=== PATIENT | male | born 1940 | race Caucasian/White ===

== ENCOUNTER 2017-09-04 09:08 | Inpatient (IN) ==
--- NOTE | 2017-09-04 09:27 | Emergency Department Note ---
Disposition Clinical Impression: Warfarin-induced coagulopathy, Anemia, GI bleed Disposition: Admitted As Inpatient Condition: Fair Time of Disposition: 10:27 ([facility]ERR[facility]Johana Huerta [facility]) GI Bleed HPI - General Time Seen by Provider: 09/04/17 09:15 Source: patient Mode of arrival: ambulatory Limitations: no limitations Nursing Notes Reviewed: Yes Vital Signs Reviewed: Yes - History of Present Illness HPI Narrative: Earlier this month patient had a valvular insertion through the groin on both sides procedure went well but over the past week the patient's been getting lightheaded dizzy short of breath patient contacted his physician due to the fact that they had a postop evaluation at that time the surgeon then ordered a CBC and a Chem-7 which was done yesterday as well as a PT PTT and he received a phone call late last evening advising him that his hemoglobin was 6.1 and that he needed to come to the emergency room to be transfused patient presents here to the ER this morning requesting a transfusion of blood due to a low hemoglobin. Patient tells me now that he has been having lightheadedness little bit of dizziness shortness of breath no chest pain no chest pressure no palpitations but has also had black stools patient there was noted to be on iron supplementation to at this time he is not though been taking any Maalox or Mylanta or Pepto-Bismol patient denies though any additional complaints he denies though vomiting any blood coffee grounds or having GI upset. Patient though is somewhat agitated that he just thought he come to the ER and get blood and then go home but after having spoken to him he appears to be much more relaxed Pt Subjective Complaint: melena Onset (ago): week(s) (1) Consistency: constant Severity: mild Improves with: nothing Worsens with: nothing Context: anticoagulant use Associated symptoms: Reports: easy bruising, syncope/near-syncope, weakness. Denies: abdominal pain, nausea, vomiting, epistaxis, fever, chills, headaches, loss of appetite, malaise, rash, other bleeding source, shortness of breath Treatments Prior to Arrival: none - Related Data Home Medications Medication Instructions Recorded Confirmed Albuterol Neb [Proventil Neb] 2.5 mg IH Q4HR 01/22/15 09/04/17 Cetirizine HCl [Zyrtec] 10 mg PO DAILY 01/22/15 09/04/17 Cholecalciferol (Vitamin D3) 50,000 unit PO BID 01/22/15 09/04/17 [Vitamin D3] Fluticasone/Salmeterol [Advair 1 each IH BID 01/22/15 09/04/17 100-50 Diskus] Gemfibrozil [Lopid] 600 mg PO BIDWM 01/22/15 09/04/17 GlipiZIDE XL (24 HR) [Glucotrol XL] 2.5 mg PO BID 01/22/15 09/04/17 Ipratropium [place] 15 ml NS DAILY 01/22/15 09/04/17 Losartan [Cozaar] 25 mg PO DAILY 01/22/15 09/04/17 Multivitamin [Multi-Day Vitamins] 1 each PO DAILY 01/22/15 09/04/17 Omeprazole [PriLOSEC] 20 mg PO DAILY 01/22/15 09/04/17 Tamsulosin [Flomax] 0.4 mg PO DAILY 01/22/15 09/04/17 Vitamin B Complex [B Complex] 1 each PO DAILY 01/22/15 09/04/17 Warfarin [Coumadin] 2.5 mg PO 1800 01/22/15 09/04/17 metFORMIN [Glucophage] 1,000 mg PO BIDWM 01/22/15 09/04/17 Atorvastatin [Lipitor] 40 mg PO HS 09/04/17 09/04/17 Ferrous Sulfate [Iron] 325 mg PO DAILY 09/04/17 09/04/17 Hydrocodone/Acetaminophen 1 each PO Q6H 09/04/17 09/04/17 [Hydrocodon-Acetaminophen 5-325] Magnesium Oxide [Magnesium] 400 mg PO BID 09/04/17 09/04/17 Allergies Allergy/AdvReac Type Severity Reaction Status Date / Time No Known Allergies Allergy Verified 09/04/17 09:31 All systems ED: reviewed and negative except as stated. Review of Systems: As Per HPI Constitutional: Reports: weakness. Denies: fever, chills Eyes: Denies: eye pain, eye discharge ENT ED: Denies: ear pain, throat pain Cardiovascular: Denies: chest pain, palpitations, dyspnea on exertion Respiratory: Denies: cough, dyspnea, wheezes Gastrointestinal: Reports: melena. Denies: abdominal pain, nausea, vomiting Genitourinary: Denies: urgency, dysuria, frequency Musculoskeletal: Denies: back pain, neck pain Integumentary: Denies: rash, abrasion Neurological: Reports: weakness. Denies: headache, numbness, abnormal gait, vertigo Psychiatric: Denies: anxiety, depression Endocrine: Reports: fatigue. Denies: heat or cold intolerance Hematological/Lymphatic: Reports: easy bleeding, easy bruising Allergic/Immunologic: Denies: facial swelling, urticaria Past Medical History - Past Medical History Attestation: Yes The following information was validated with the patient. Source: patient, old records reviewed, nursing notes reviewed Medical history: Reports: asthma, COPD, diabetes, GERD, hyperlipidemia, hypertension, other Surgical history: Reports: knee replacement, other Psychiatric history: Reports: no psych history - Social History Smoking Status: Never smoker Alcohol use: Reports: heavy Drug use: Reports: none Physical Exam - General Limitations: no limitations General appearance: alert, in no apparent distress, anxious - Head Head exam: atraumatic, normocephalic, normal inspection - Eye Eye exam: Present: normal appearance, PERRL, EOMI - ENT ENT exam: normal exam, normal oropharynx, mucous membranes moist, TM's normal bilaterally, normal external ear exam - Neck Neck exam: Present: normal inspection, full ROM, trachea midline. Absent: meningismus, lymphadenopathy - Chest Chest inspection: Present: normal inspection, symmetric chest wall rise - Respiratory Respiratory exam: Present: normal lung sounds bilaterally - Cardiovascular Cardiovascular exam: Present: regular rate, normal rhythm, normal heart sounds - Abdominal Exam Abdominal exam: Present: soft, Non-Tender, normal bowel sounds, other ( umbilical hernia). Absent: mass, bruit, pulsatile mass - Rectal Exam Cloth Finisher present during exam: Yes (Jaquan RN) Rectal exam: Present: normal inspection, normal rectal tone, heme (+) stool, black stool - Male exam: Present: other (Ecchymosis bilateral hips near surgical incisions and then over the mons pubis and on to the penile shaft area purplish in color) - Extremities Exam Extremities exam: Present: normal inspection, full ROM, normal capillary refill. Absent: tenderness, pedal edema, joint swelling, calf tenderness - Expanded Upper Extremity Exam Shoulder exam: Present: normal inspection, full ROM Arm exam: Present: normal inspection, full ROM Elbow exam: Present: normal inspection, full ROM Forearm/Wrist exam: Present: normal inspection, full ROM Hand exam: Present: normal inspection, full ROM Vascular exam: Normal: capillary refill, radial pulse - Expanded Lower Extremity Exam Hip/Pelvis exam: Present: normal inspection, full ROM Upper leg exam: Present: normal inspection, full ROM Knee exam: Present: normal inspection, full ROM Lower leg exam: Present: normal inspection, full ROM Ankle exam: Present: normal inspection, full ROM Foot/toe exam: Present: normal inspection, full ROM Neurovascular/Tendon exam: Present: normal capillary refill, normal fine/light touch. Absent: motor deficit, sensory deficit, tendon deficit Gait: observed and normal - Back Exam Back exam: Present: normal inspection, full ROM. Absent: muscle spasm - Neurological Exam Neurological exam: Present: alert, oriented X3, CN II-XII intact, normal gait - Psychiatric Psychiatric exam: Present: normal affect, normal mood - Skin Skin exam: Present: warm, dry, intact, normal color Course Course Narrative: labs were obtained based on his hemoglobin was 6.1 yesterday he will need to have a transfusion which we will admit to observation to the duration of time to do the transfusion Vital Signs Temperature 98.0 F 09/04/17 09:22 Pulse Rate 80 09/04/17 09:22 Respiratory Rate 16 09/04/17 09:22 Blood Pressure 116/52 09/04/17 09:22 O2 Sat by Pulse Oximetry 99 09/04/17 09:22 Temperature 98.0 F 09/04/17 09:22 Pulse Rate 80 09/04/17 09:22 Respiratory Rate 16 09/04/17 09:22 Blood Pressure 116/52 09/04/17 09:22 O2 Sat by Pulse Oximetry 99 09/04/17 09:22 Oxygen Delivery Oxygen Delivery Room Air GI Bleed - Differential Diagnosis Likely: Upper gastrointestinal hemorrhage, Lower gastrointestinal hemorrhage, melena - Medical Records Medical records reviewed: Yes I reviewed the patient's medical records. - Lab Data Lab results reviewed: Yes I reviewed the patient's lab results. Result diagrams: 09/04/17 09:30 09/04/17 09:30 Lab Results 09/04/17 09/04/17 09/04/17 Range/Units 09:30 09:30 09:30 WBC 4.6 (4.3-11.1) K/mcL RBC 2.06 L (4.19-5.50) M/mcL Hgb 6.6 L (12.9-16.9) g/dL Hct 20.1 L (37.5-50.1) % MCV 97.6 (83.0-100.0) fL MCH 32.0 (28.0-33.3) pg MCHC 32.8 (31.6-35.5) g/dL RDW 14.9 H (11.5-14.5) % Plt Count 218 (140-400) K/mcL MPV 8.8 L (9.4-12.4) fL Immature Gran % 0.2 (0-4) % Seg Neutrophils % 45.7 % Lymphocytes % 39.3 % Monocytes % 10.7 % Eosinophils % 3.9 % Basophils % 0.2 % Neutrophils # 2.1 (1.6-8.9) K/mcL Lymphocytes # 1.8 (0.6-4.6) K/mcL Monocytes # 0.5 (0.0-1.3) K/mcL Eosinophils # 0.2 (0.0-0.6) K/mcL Basophils # 0.0 (0.0-0.2) K/mcL PT 15.5 H D (9.4-12.1) Seconds INR 1.4 D APTT 36.4 H (26.0-36.0) Seconds Sodium 130 L (136-145) mEq/L Potassium 4.6 (3.5-5.1) mEq/L Chloride 97 L (98-107) mEq/L Carbon Dioxide 26 (23-29) mEq/L BUN 29 H (8-23) mg/dL Creatinine 1.02 (0.70-1.30) mg/dL Est GFR ( Amer) > 60 (> 60) Est GFR (Non-Af Amer) > 60 (> 60) BUN/Creatinine Ratio 28 H (6-26) Glucose 163 H (70-105) mg/dL Calculated Osmolality 279 L (280-300) Calcium 9.3 (8.6-10.3) mg/dL Total Bilirubin 0.8 (0.3-1.0) mg/dL AST 10 L (13-39) Units/L ALT 6 L (7-52) Units/L Alkaline Phosphatase 41 (34-104) Units/L Serum Total Protein 6.1 L (6.4-8.9) g/dL Albumin 4.0 (3.5-5.7) g/dL Globulin 2.1 L (2.4-3.5) g/dL Albumin/Globulin Ratio 1.9 (1.1-2.2) Stool Occult Blood (Negative) Digoxin < 0.3 L (0.8-2.0) ng/mL 09/04/17 Range/Units 09:30 WBC (4.3-11.1) K/mcL RBC (4.19-5.50) M/mcL Hgb (12.9-16.9) g/dL Hct (37.5-50.1) % MCV (83.0-100.0) fL MCH (28.0-33.3) pg MCHC (31.6-35.5) g/dL RDW (11.5-14.5) % Plt Count (140-400) K/mcL MPV (9.4-12.4) fL Immature Gran % (0-4) % Seg Neutrophils % % Lymphocytes % % Monocytes % % Eosinophils % % Basophils % % Neutrophils # (1.6-8.9) K/mcL Lymphocytes # (0.6-4.6) K/mcL Monocytes # (0.0-1.3) K/mcL Eosinophils # (0.0-0.6) K/mcL Basophils # (0.0-0.2) K/mcL PT (9.4-12.1) Seconds INR APTT (26.0-36.0) Seconds Sodium (136-145) mEq/L Potassium (3.5-5.1) mEq/L Chloride (98-107) mEq/L Carbon Dioxide (23-29) mEq/L BUN (8-23) mg/dL Creatinine (0.70-1.30) mg/dL Est GFR ( Amer) (> 60) Est GFR (Non-Af Amer) (> 60) BUN/Creatinine Ratio (6-26) Glucose (70-105) mg/dL Calculated Osmolality (280-300) Calcium (8.6-10.3) mg/dL Total Bilirubin (0.3-1.0) mg/dL AST (13-39) Units/L ALT (7-52) Units/L Alkaline Phosphatase (34-104) Units/L Serum Total Protein (6.4-8.9) g/dL Albumin (3.5-5.7) g/dL Globulin (2.4-3.5) g/dL Albumin/Globulin Ratio (1.1-2.2) Stool Occult Blood Positive A (Negative) Digoxin (0.8-2.0) ng/mL Critical Care Time Critical Care Time: Yes Total Critical Care Time: 35 Attestation: Critical care performed: 35 minutes as the result of the low hemoglobin with the potential risk of needing transfusion immediate versus urgent due to the fact that the blood losses been slow over the past week we can transfuse I spoke with Dr. Rutledge concerns was where the etiology was from I did have a CT scan abdomen pelvis to make sure it is not evidence of a retroperitoneal bleed patient will be transferred to [facility] for further management Time is exclusive of separately billable procedures. Time includes: direct patient care, patient reassessment, coordination of patient care, interpretation of data (laboratory data, radiology data, and respiratory data), review of patient's medical records, medical consultation and documentation of patient care. Procedures included in critical care time: Procedures excluded from critical care time:
[2017-09-04 09:51] LABS: Basophils % 0.2 %; Eosinophils # 0.2 K/mcL (0.0-0.6); Eosinophils % 3.9 %; Hematocrit 20.1 % (37.5-50.1); Immature Granulocytes % 0.2 % (0-4); Lymphocytes # 1.8 K/mcL (0.6-4.6); Lymphocytes % 39.3 %; Mean Corpuscular HGB Conc 32.8 g/dL (31.6-35.5); Mean Corpuscular Volume 97.6 fL (83.0-100.0); Mean Platelet Volume 8.8 fL (9.4-12.4); Monocytes # 0.5 K/mcL (0.0-1.3); Monocytes % 10.7 %; Neutrophils # 2.1 K/mcL (1.6-8.9); Platelet Count 218 K/mcL (140-400); Red Blood Count 2.06 M/mcL (4.19-5.50); Red Cell Distribution Width 14.9 % (11.5-14.5); Segmented Neutrophils % 45.7 %
[2017-09-04 10:01] LABS: INR 1.4; Prothrombin Time 15.5 Seconds (9.4-12.1)
[2017-09-04 10:03] LABS: Hemoglobin 6.6 g/dL (12.9-16.9)
[2017-09-04 10:04] LABS: Activated Partial Thrombo Time 36.4 Seconds (26.0-36.0)
[2017-09-04 10:15] LABS: Alanine Aminotransferase 6 Units/L (7-52); Albumin/Globulin Ratio 1.9 (1.1-2.2); Alkaline Phosphatase 41 Units/L (34-104); Aspartate Amino Transferase 10 Units/L (13-39); BUN/Creatinine Ratio 28 (6-26); Bilirubin,Total 0.8 mg/dL (0.3-1.0); Blood Urea Nitrogen 29 mg/dL (8-23); Calcium 9.3 mg/dL (8.6-10.3); Carbon Dioxide 26 mEq/L (23-29); Chloride 97 mEq/L (98-107); Digoxin < 0.3 ng/mL (0.8-2.0); Globulin 2.1 g/dL (2.4-3.5); Glucose 163 mg/dL (70-105); Osmolality,Calculated 279 (280-300); Potassium 4.6 mEq/L (3.5-5.1); Sodium 130 mEq/L (136-145); Total Protein 6.1 g/dL (6.4-8.9); eGFR For African Americans > 60 (> 60); eGFR For Non-African Americans > 60 (> 60)
[2017-09-04] MEDS ORDERED: Naloxone 0.4 MG/ML INJ IVP PRN (11:42)
[2017-09-04] MEDS ORDERED: Albuterol 2.5 MG/3 ML NEBULIZER IH SCH (12:00)
[2017-09-04] MEDS ORDERED: 0.9 % Sodium Chloride 250 ML ONE ×3 (12:01→18:39)
--- NOTE | 2017-09-04 13:49 | Internal Med History&Physical ---
Date of Encounter: 09/04/17 Time of Encounter: 13:44 Assessment and Plan (1) GI bleed Current visit: Yes Status: Acute Patient presents with complaints of dizziness and malaise over the past several days. Patient had postoperative lab work done in the surgeon's office which showed a hemoglobin of 6.6. Vital signs remained symptomatic. Patient endorses black tarry stools, which she states did not present for over a month. Patient has recent history of anemia prior to his valvular surgery, during which she required transfusion at that time. Patient admitted for transfusion of 3 units of packed red blood cells. We will recheck labs afterwards Qualifiers: GI bleed type/associated pathology: unspecified gastrointestinal hemorrhage type Qualified Code(s): K92.2 - Gastrointestinal hemorrhage, unspecified (2) Valvular disease Current visit: Yes Status: Acute Patient had a intravascular replacement several weeks prior to this admission. Patient denies any chest discomforts or palpitations. Patient currently remains on Coumadin but his admission INR was 1.4. Obtain with supportive care and current home medications (3) HTN (hypertension) Current visit: Yes Status: Chronic Vital signs are stable. We will continue with current medications Qualifiers: Hypertension type: essential hypertension Qualified Code(s): I10 - Essential (primary) hypertension (4) COPD (chronic obstructive pulmonary disease) Current visit: Yes Status: Chronic No acute issues. Lungs are clear throughout. Patient states that he uses nebulized treatments and inhalers at home. Denies any current dyspnea or productive cough. We will continue with current home medications Qualifiers: COPD type: unspecified COPD Qualified Code(s): J44.9 - Chronic obstructive pulmonary disease, unspecified (5) BPH (benign prostatic hyperplasia) Current visit: Yes Status: Acute No acute issues. Patient states that he had a remote procedure performed by his urologist years ago and has not had any issues since then has been stable. Will continue current meds. Qualifiers: Lower urinary tract symptom presence: symptoms absent Qualified Code(s): N40.0 - Benign prostatic hyperplasia without lower urinary tract symptoms Internal Medicine - H&P: HPI Admitted From: Home Plans for Post Hospital Care: Home History of present illness: Mr. Mac is a 77 year old male who presented into the emergency department as a referral from patient's current [facility] surgeon. Patient was doing a follow-up with his current cardiovascular surgeon and after review of labs he was found to have a hemoglobin of 6.6 and was directed to come to the ED. Patient endorses having dark tarry stools which he states that he has had for over a month. He states that he has been experiencing weakness and dizziness over the past several days. Patient states that he had a intravascular valve replacement in [place] at [facility] a few weeks prior to this admission. Patient states that prior to the hospital admission for his valve replacement that he experienced anemia in which his hemoglobin was 6.1 approximately and at that time required a blood transfusion. Patient states that he has not experienced any osvaldo blood in his stool. He states that he was seen by a soda maker during his last admission and had a upper and lower GI performed by using a camera pill. Patient denies any endoscopy or colonoscopy during that admission. Patient denies any nausea or vomiting. Past Med Surg Social Fam HX - Past Medical History Medical history: asthma, COPD, diabetes, GERD, hyperlipidemia, hypertension, valvular heart disease, other Psychiatric history: no psych history - Past Surgical History Surgical History: knee replacement, other - Social History Smoking Status: Never smoker Smokeless Tobacco Status: No Alcohol use: heavy Drug use: none - Family History Sister Living Status: Hx Family Cancer: Yes (breast) Brother Living Status: Hx Family Cancer: (colon) Internal Medicine - H&P: Meds Fluticasone/Salmeterol [Advair 100-50 Diskus] 1 each IH BID 01/22/15 [History] Gemfibrozil [Lopid] 600 mg PO BIDWM 01/22/15 [History] Multivitamin [Multi-Day Vitamins] 1 each PO DAILY 01/22/15 [History] Omeprazole [PriLOSEC] 20 mg PO DAILY 01/22/15 [History] Tamsulosin [Flomax] 0.8 mg PO HS 01/22/15 [History] Vitamin B Complex [B Complex] 1 each PO DAILY 01/22/15 [History] Warfarin [Coumadin] 2.5 mg PO 1800 01/22/15 [History] metFORMIN [Glucophage] 1,000 mg PO BIDWM 01/22/15 [History] Atorvastatin [Lipitor] 40 mg PO HS 09/04/17 [History] Cholecalciferol (Vitamin D3) [Dialyvite Vitamin D] 10,000 unit PO DAILY [History] Ferrous Sulfate [Iron] 325 mg PO DAILY 09/04/17 [History] Hydrocodone/Acetaminophen [Hydrocodon-Acetaminophen 5-325] 1 each PO Q6H [History] Ipratropium/Albuterol Neb [Duoneb] 3 ml IH Q6HR PRN 09/04/17 [History] Magnesium Oxide [Magnesium] 400 mg PO BID 09/04/17 [History] predniSONE [Prednisone] 5 mg PO DAILY 09/04/17 [History] 3 Allergy/AdvReac Type Severity Reaction Status Date / Time No Known Allergies Allergy Verified 09/04/17 09:31 All Systems PM: A 10-system review of systems was performed and is negative for pertinent findings except as documented above in the HPI. - Constitutional Constitutional: as per HPI, no chills, no fever(s), no night sweats - EENT Eyes: no change in vision, no discharge, no pain, no photophobia Ears: no ear discharge, no ear pain, no tinnitus Nose, mouth and throat: no dysphagia, no nasal discharge, no neck pain, no sore throat - Cardiovascular Cardiovascular ROS IM: as per HPI, no chest pain, no diaphoresis, no dyspnea, no lightheadedness, no palpitations, no syncope - Respiratory Respiratory: no cough, no dyspnea, no wheezing, no excessive phlegm production - Gastrointestinal Gastrointestinal: as per HPI, no abdominal pain, no diarrhea, no hematemesis, no hematochezia, no melena, no nausea, no vomiting - Musculoskeletal Musculoskeletal ROS IM: no numbness, no tingling - Integumentary Integumentary IM: no rash, no unusual bruising - Neurological Neurological ROS: no confusion, no convulsions, no focal weakness, no numbness, no tingling, no tremor(s) - Hematologic/Lymphatic Hematologic/Lymphatic: no easy bruising - Constitutional Vitals: Temp Pulse Resp BP Pulse Ox 97.7 F 81 16 108/55 99 09/04/17 12:47 09/04/17 12:47 09/04/17 12:47 09/04/17 12:47 09/04/17 12:47 General appearance: Present: A&O X 3, pleasant - Head Head exam: Present: atraumatic, normocephalic - Eye Eye exam: Present: PERRL, conjuntiva pink, sclera anicteric Pupils: Present: PERRL - Neck Neck exam general surgery: Present: supple, trachea midline. Absent: lymphadenopathy - Respiratory Respiratory exam: Present: CTAB. Absent: accessory muscle use, rales, rhonchi, wheezes - Cardiovascular Cardiovascular exam: Present: irregular rhythm, RRR, +S1, +S2. Absent: diastolic murmur, gallop, rubs, systolic murmur - GI/Abdominal GI/Abdominal exam: Present: hyperactive bowel sounds, soft, no peritoneal signs. Absent: distended, tenderness - Extremities Exam Extremities exam: Present: warm, radial pulses palpable and symmetrical. Absent : calf tenderness, cyanotic, pedal edema - Neurological Exam Neurological exam: Present: CN II-XII intact, oriented X3, no focal deficits. Absent: pronater drift, facial droop, speech deficit - Skin Skin exam: Present: dry, intact Internal Med - H&P Results - Labs CBC & Chem 7: 09/04/17 09:30 09/04/17 09:30
[2017-09-04] MEDS: Furosemide 20 MG/2 ML VIAL IVP SCH ×3 (15:30→23:15)
[2017-09-04] MEDS: Ipratropium/Albuterol Neb 3 ML IH PRN (15:52)
[2017-09-04] MEDS: *HR* HYDROcodone/Acet 5/325 mg TABLET PO SCH ×3 (15:52→23:14)
[2017-09-04] MEDS ORDERED: *HR* Digoxin 0.5 MG/2 ML AMPUL IVP ONE (17:27)
[2017-09-04] MEDS: *HR* Metformin 500 MG TABLET PO SCH (17:49)
[2017-09-04] MEDS: Aspirin Enteric Coated 325 MG Tablet PO SCH (17:49)
[2017-09-04] MEDS: Pantoprazole 40 MG VIAL IVP SCH (17:50)
[2017-09-04] MEDS ORDERED: *HR* Warfarin 2.5 MG TABLET PO SCH (18:00)
[2017-09-04] MEDS: Cholecalciferol (D-3) 1,000 UNIT TABLET PO SCH (18:06)
[2017-09-04] MEDS ORDERED: *HR* GlipiZIDE XL (24 HR) 2.5 MG TABLET PO SCH (21:00)
[2017-09-04] MEDS: Magnesium Oxide 400 MG TABLET PO SCH (21:49)
[2017-09-04] MEDS: Budesonide/Formoterol 80/4.5 MDI IH SCH (22:08)
[2017-09-05 05:39] LABS: Hematocrit 24.9 % (37.5-50.1); Hemoglobin 8.3 g/dL (12.9-16.9); Mean Corpuscular HGB Conc 33.3 g/dL (31.6-35.5); Mean Corpuscular Hemoglobin 31.1 pg (28.0-33.3); Mean Corpuscular Volume 93.3 fL (83.0-100.0); Mean Platelet Volume 8.5 fL (9.4-12.4); Platelet Count 162 K/mcL (140-400); Red Blood Count 2.67 M/mcL (4.19-5.50); Red Cell Distribution Width 16.5 % (11.5-14.5)
[2017-09-05 05:57] LABS: Alanine Aminotransferase 6 Units/L (7-52); Albumin 3.7 g/dL (3.5-5.7); Albumin/Globulin Ratio 1.9 (1.1-2.2); Alkaline Phosphatase 42 Units/L (34-104); Aspartate Amino Transferase 10 Units/L (13-39); BUN/Creatinine Ratio 26 (6-26); Bilirubin,Total 1.1 mg/dL (0.3-1.0); Blood Urea Nitrogen 29 mg/dL (8-23); Calcium 8.9 mg/dL (8.6-10.3); Carbon Dioxide 28 mEq/L (23-29); Chloride 97 mEq/L (98-107); Glucose 106 mg/dL (70-105); Osmolality,Calculated 280 (280-300); Potassium 3.9 mEq/L (3.5-5.1); Sodium 132 mEq/L (136-145); Total Protein 5.7 g/dL (6.4-8.9); eGFR For African Americans > 60 (> 60); eGFR For Non-African Americans > 60 (> 60)
[2017-09-05] MEDS: *HR* HYDROcodone/Acet 5/325 mg TABLET PO SCH ×3 (06:11→18:15)
[2017-09-05] MEDS: Pantoprazole 40 MG VIAL IVP SCH ×2 (06:12→18:14)
[2017-09-05] MEDS: Ipratropium/Albuterol Neb 3 ML IH PRN (06:19)
[2017-09-05] MEDS: *HR* Digoxin 0.25 MG TABLET PO SCH (09:25)
[2017-09-05] MEDS: Magnesium Oxide 400 MG TABLET PO SCH ×2 (09:25→20:24)
[2017-09-05] MEDS: Multivit/Ca/Min/Fe/FA 1 TAB TABLET PO SCH (09:25)
[2017-09-05] MEDS: IPRATROPIUM BROMIDE NS SCH (09:26)
[2017-09-05] MEDS: Loratadine 10 MG TABLET PO SCH (09:26)
[2017-09-05] MEDS: *HR* Metformin 500 MG TABLET PO SCH ×2 (09:26→18:14)
[2017-09-05] MEDS: Cholecalciferol (D-3) 1,000 UNIT TABLET PO SCH (09:26)
[2017-09-05] MEDS: Vitamin B Complex/Vit C/Vit E 1 EACH TABLET PO SCH (09:26)
[2017-09-05] MEDS: Aspirin Enteric Coated 325 MG Tablet PO SCH (09:26)
[2017-09-05] MEDS: Budesonide/Formoterol 80/4.5 MDI IH SCH ×2 (09:27→20:25)
--- NOTE | 2017-09-05 10:04 | Internal Med Progress Note ---
Date of Encounter: 09/05/17 Time of Encounter: 10:02 - Assessment and plan (1) Warfarin-induced coagulopathy Current Visit: Yes Status: Acute Assessment and plan: No source could be found It was noted to have high INR in surgeons office . Hemoglobin was low . he was admitted for blood transfusion and received 3 units. Followup H/H today According to patient he had colonoscopy and [facility] . Per Daughter there were hemorrhoids but no active bleeding could be found. At the present time he is s table . his warfarin has been on hold (2) Valvular disease Current Visit: Yes Status: Acute Assessment and plan: s/p Valve replacement . if mechanical valve would need anticoagulation however on face of bleed , and warfarin at hold its does become risky due to incidents or stroke . Clinically he is stable and can be discharged if his h/h is stable (3) HTN (hypertension) Current Visit: Yes Status: Chronic Assessment and plan: stable Qualifiers: Hypertension type: essential hypertension Qualified Code(s): I10 - Essential (primary) hypertension - Subjective Interval history: seen as cross coverage . Male with h of recent valve replacement, developed black tarry stools and was noted to ahve low H/H he was admitted for blood transfusion and received 3 units PRBC . He was also feeling of dizziness. At the present time he is in no acute distress alert and oriented and cooperative - Constitutional Vitals: Temp Pulse Resp BP Pulse Ox 98.7 F 73 16 165/73 100 09/05/17 07:01 09/05/17 07:01 09/05/17 04:00 09/05/17 07:01 09/05/17 07:01 General appearance: Present: A&O X 3, pleasant - Head Head exam: Present: atraumatic - Eye Eye exam: Present: EOMI, PERRL - Neck Neck exam general surgery: Present: supple. Absent: tenderness, nuchal rigidity - Respiratory Respiratory exam: Present: CTAB. Absent: respiratory distress, rhonchi, stridor , wheezes, tachypnea - Cardiovascular Cardiovascular exam: Present: clicks, RRR, +S1, +S2. Absent: irregular rhythm, JVD, systolic murmur - GI/Abdominal GI/Abdominal exam: Present: normal bowel sounds, soft. Absent: firm, guarding, pulsatile mass, rebound, rigid - Extremities Exam Extremities exam: Absent: pedal edema, tenderness - Neurological Exam Neurological exam: Present: CN II-XII intact, normal gait, oriented X3, no focal deficits, strengths equal and symetr throughout. Absent: pronater drift, facial droop, speech deficit Internal Medicine: Result - Labs CBC & Chem 7: 09/05/17 05:35 09/05/17 05:35 Labs: Short CBC 09/05/17 Range/Units 05:35 WBC 5.1 (4.3-11.1) K/mcL Hgb 8.3 L D (12.9-16.9) g/dL Hct 24.9 L (37.5-50.1) % Plt Count 162 (140-400) K/mcL BMP 09/05/17 05:35 Sodium 132 L Potassium 3.9 Chloride 97 L Carbon Dioxide 28 BUN 29 H Creatinine 1.11 Glucose 106 H Calcium 8.9 Liver Function 09/05/17 Range/Units 05:35 Total Bilirubin 1.1 H (0.3-1.0) mg/dL AST 10 L (13-39) Units/L ALT 6 L (7-52) Units/L Alkaline Phosphatase 42 (34-104) Units/L Albumin 3.7 (3.5-5.7) g/dL - ABG Interpretation ABG results: PT/INR, D-dimer PT 15.5 Seconds (9.4-12.1) H D 09/04/17 09:30 - VTE Documentation of Mechanical Device: Graduated compression elastic hosiery Consult Discharge Plan - Plan
[2017-09-05 15:36] LABS: Hematocrit 22.9 % (37.5-50.1); Hemoglobin 7.7 g/dL (12.9-16.9)
[2017-09-05 18:52] LABS: % Iron Saturation 15 % (20-55); Iron 77 mcg/dL (65-175); Transferrin 363 mg/dL (203-362)
[2017-09-05 19:17] LABS: Vitamin B12 307 pg/mL (250-1100)
[2017-09-05 19:21] LABS: Folate > 22.3 ng/mL (3.0-16.0)
[2017-09-06] MEDS: *HR* HYDROcodone/Acet 5/325 mg TABLET PO SCH ×2 (00:03→05:55)
[2017-09-06] MEDS: Ipratropium/Albuterol Neb 3 ML IH PRN (04:20)
[2017-09-06 04:52] LABS: Hematocrit 26.1 % (37.5-50.1); Hemoglobin 8.6 g/dL (12.9-16.9)
[2017-09-06] MEDS: Pantoprazole 40 MG VIAL IVP SCH (05:56)
[2017-09-06 07:55] VITALS: BP 173/77
[2017-09-06] MEDS: Multivit/Ca/Min/Fe/FA 1 TAB TABLET PO SCH (08:45)
[2017-09-06] MEDS: Loratadine 10 MG TABLET PO SCH (08:45)
[2017-09-06] MEDS: Aspirin Enteric Coated 325 MG Tablet PO SCH (08:45)
[2017-09-06] MEDS: Magnesium Oxide 400 MG TABLET PO SCH (08:45)
[2017-09-06] MEDS: Cholecalciferol (D-3) 1,000 UNIT TABLET PO SCH (08:45)
[2017-09-06] MEDS: *HR* Digoxin 0.25 MG TABLET PO SCH (08:45)
[2017-09-06] MEDS: Vitamin B Complex/Vit C/Vit E 1 EACH TABLET PO SCH (08:45)
[2017-09-06] MEDS: *HR* Metformin 500 MG TABLET PO SCH (08:45)
[2017-09-06] MEDS: IPRATROPIUM BROMIDE NS SCH (08:50)
[2017-09-06] MEDS: Budesonide/Formoterol 80/4.5 MDI IH SCH (08:50)
--- NOTE | 2017-09-06 08:50 | Discharge Summary ---
- NOTES TO OUTPATIENT PROVIDER Notes to Outpatient Provider: followup with PC to assess need for warfarin Orders not resulted at time of discharge: Pending orders 09/05/17 19:28 Stool guiac [Occult Blood,Stool] [BF] Routine Date of Encounter: 09/06/17 Time of Encounter: 08:45 - Discharge Diagnosis (1) Warfarin-induced coagulopathy Priority: Primary Status: Acute Comments: pt was admitted with low H/H and a positive guaice . He received 3 units or PRBC which he tolerated well . He denies any conintues tarry stools infact he had been constipated during his stay and dint had any bowel movement . No abdominal pain or any signs of bleed at the resent time . He os off Warfarin which he takes for hx of A fib has a CHANCE score of 3 . This needs to be reassessed in the presence of bleed and anemia (2) Valvular disease Priority: Secondary Status: Chronic Comments: s/p TAVR stable (3) HTN (hypertension) Priority: Secondary Status: Chronic Comments: slightly high systolic today needs further adjustments based on his age this can be accomplished as out pt . Qualifiers: Hypertension type: essential hypertension Qualified Code(s): I10 - Essential (primary) hypertension Hospital course: Mr. Mac is a 77 year old male - Time Spent with Patient Total time spent providing and/or coordinating discharge services: Greater than 30 minutes Specific discharge activities: as tolerated - Discharge Medications Home Medications: Fluticasone/Salmeterol [Advair 100-50 Diskus] 1 each IH BID 01/22/15 [History] Gemfibrozil [Lopid] 600 mg PO BIDWM 01/22/15 [History] Multivitamin [Multi-Day Vitamins] 1 each PO DAILY 01/22/15 [History] Omeprazole [PriLOSEC] 20 mg PO DAILY 01/22/15 [History] Tamsulosin [Flomax] 0.8 mg PO HS 01/22/15 [History] Vitamin B Complex [B Complex] 1 each PO DAILY 01/22/15 [History] Warfarin [Coumadin] 2.5 mg PO 1800 01/22/15 [History] metFORMIN [Glucophage] 1,000 mg PO BIDWM 01/22/15 [History] Atorvastatin [Lipitor] 40 mg PO HS 09/04/17 [History] Cholecalciferol (Vitamin D3) [Dialyvite Vitamin D] 10,000 unit PO DAILY [History] Ferrous Sulfate [Iron] 325 mg PO DAILY 09/04/17 [History] Hydrocodone/Acetaminophen [Hydrocodon-Acetaminophen 5-325] 1 each PO Q6H [History] Ipratropium/Albuterol Neb [Duoneb] 3 ml IH Q6HR PRN 09/04/17 [History] Magnesium Oxide [Magnesium] 400 mg PO BID 09/04/17 [History] predniSONE [Prednisone] 5 mg PO DAILY 09/04/17 [History] Allergies/Adverse Reactions: 3 Allergy/AdvReac Type Severity Reaction Status Date / Time No Known Allergies Allergy Verified 09/04/17 09:31 Date of admission: 09/05/17 11:07 Primary care physician: Del Reyes CNP Discharging clinician: Radha Estrella Anticipated date of discharge: 09/06/17 - Constitutional Vitals: Temp Pulse Resp BP Pulse Ox 97.9 F 82 16 173/77 99 09/06/17 07:54 09/06/17 07:54 09/06/17 07:54 09/06/17 07:54 09/06/17 07:54 General appearance: Present: A&O X 3, pleasant, answers questions appropriately - Head Head exam: Present: atraumatic - Eye Eye exam: Present: EOMI, PERRL - Neck Neck exam general surgery: Present: supple. Absent: nuchal rigidity - Respiratory Respiratory exam: Present: CTAB. Absent: chest wall tenderness, decreased breath sounds, respiratory distress, rhonchi, stridor, wheezes - Cardiovascular Cardiovascular exam: Present: clicks, RRR, +S1, +S2, +S3. Absent: JVD, systolic murmur - GI/Abdominal GI/Abdominal exam: Present: normal bowel sounds, soft. Absent: distended, guarding, rebound, rigid - Extremities Exam Extremities exam: Absent: pedal edema, tenderness - Neurological Exam Neurological exam: Present: alert, CN II-XII intact, oriented X3, no focal deficits, strengths equal and symetr throughout. Absent: facial droop, speech deficit - Patient Status Disposition: Home, Self-Care Condition: Good Functional capacity at discharge: uses cane/walker Overall status at discharge: patient is back to baseline - Discharge Instructions Follow Up With: Del Reyes PAPER TWISTER TENDER [Primary Care Provider] - Forms: ED Satisfaction Letter Additional Instructions: followup with PC within a week time . needs followup for h/h and HTN - Diet and Activity Activity: increase activity as tolerated - VTE Reasons for not Prescribing Prophylaxis: Medical contraindication Documentation of Mechanical Device: Graduated compression elastic hosiery
--- NOTE | 2017-09-08 15:56 | Electrocardiograph Report ---
[address] [place], [place] [address] Test Date: 2017-09-04 Pat Name: Shantal Mac Department: 2001 Room: 118 Gender: M Stogy Maker: Steven : 1940 Requested By: Efe Rutledge Order Number: [id number] Reading MD: Dougie Trujillo Measurements Intervals [place] Rate: 107 P: [place]: 0 QRS: 63 QRSD: 137 T: 65 QT: 374 QTc: 436 Interpretive Statements ATRIAL FIBRILLATION WITH RAPID VENTRICULAR RESPONSE INTRAVENTRICULAR CONDUCTION DELAY ANTEROSEPTAL MYOCARDIAL INFARCTION, AGE UNDETERMINED Electronically Signed On 09-08-2017 15:55:11 EDT by Dougie Trujillo
== END 2017-09-06 11:31 | disposition home or self-care (01) | DRG 379 ==
LOC: INPGRE 09:08 → EMEROOGRE 09:08 → INPGRE 10:46
PROVIDERS: ADMIT Internal Medicine; ATTEND Internal Medicine

== ENCOUNTER 2019-08-19 13:22 | Observation (INO) ==
[2019-08-19] MEDS ORDERED: 0.9 % Sodium Chloride 1,000 ML IVC SCH (14:15)
[2019-08-19 14:19] LABS: Basophils % 0.2 %; Eosinophils % 0.8 %; Hematocrit 25.8 % (37.5-50.1); Hemoglobin 9.5 g/dL (12.9-16.9); Immature Granulocytes % 0.4 % (0-4); Lymphocytes # 0.9 K/mcL (0.6-4.6); Lymphocytes % 17.6 %; Mean Corpuscular HGB Conc 36.8 g/dL (31.6-35.5); Mean Corpuscular Hemoglobin 34.9 pg (28.0-33.3); Mean Corpuscular Volume 94.9 fL (83.0-100.0); Mean Platelet Volume 8.2 fL (9.4-12.4); Monocytes # 0.5 K/mcL (0.0-1.3); Monocytes % 9.6 %; Neutrophils # 3.6 K/mcL (1.6-8.9); Platelet Count 128 K/mcL (140-400); Red Blood Count 2.72 M/mcL (4.19-5.50); Red Cell Distribution Width 13.6 % (11.5-14.5); Segmented Neutrophils % 71.4 %
[2019-08-19 14:45] LABS: BUN/Creatinine Ratio 24 (6-26); Blood Urea Nitrogen 24 mg/dL (8-23); Calcium 9.2 mg/dL (8.6-10.3); Carbon Dioxide 33 mEq/L (23-29); Chloride 80 mEq/L (98-107); Glucose 134 mg/dL (70-105); Osmolality,Calculated 256 (280-300); Sodium 120 mEq/L (136-145); eGFR For African Americans > 60 (> 60); eGFR For Non-African Americans > 60 (> 60)
[2019-08-19] MEDS ORDERED: Naloxone 0.4 MG/ML INJ IVP PRN ×2 (15:34→15:36)
[2019-08-19] MEDS ORDERED: Mag Hydrox/Al Hydrox/Simeth 30 ML UDC PO PRN (15:36)
[2019-08-19] MEDS ORDERED: MOM Conc 10 ML UD.LIQ PO PRN (15:36)
[2019-08-19] MEDS ORDERED: Ondansetron ODT 4 MG TAB.RAPDIS SL PRN (15:36)
[2019-08-19] MEDS ORDERED: Ondansetron 4 MG/2 ML VIAL IVP PRN (15:36)
[2019-08-19] MEDS ORDERED: Ipratropium/Albuterol Neb 3 ML IH PRN (16:11)
[2019-08-19] MEDS ORDERED: *HR* HYDROcodone/Acet 7.5/325 mg TABLET PO PRN (16:11)
[2019-08-19] MEDS ORDERED: Bisacodyl 10 MG RECTAL SUPPOSITORY RC PRN (16:46)
[2019-08-19 16:59] LABS: Albumin/Globulin Ratio 1.9 (1.1-2.2); Bilirubin,Direct 0.2 mg/dL (0.0-0.2); Bilirubin,Indirect 0.8 mg/dL (0.0-1.0); Globulin 2.1 g/dL (2.4-3.5); Magnesium 1.3 mg/dL (1.6-2.6); Total Protein 6.1 g/dL (6.4-8.9)
[2019-08-19] MEDS ORDERED: *HR* Metformin 500 MG TABLET PO SCH (17:00)
[2019-08-19 17:55] LABS: Bilirubin,Urine Negative (Negative); Blood,Urine Negative (Negative); Clarity,Urine Clear (Clear); Color,Urine Yellow (Yellow); Glucose,Urine (UA) Normal (Normal); Ketones,Urine Negative (Negative); Leukocyte Esterase,Urine Negative (Negative); Nitrite,Urine Negative (Negative); Protein,Urine Negative (Neg-Trace); Specific Gravity,Urine 1.015 (1.010-1.025); Urobilinogen,Urine Normal (Normal)
[2019-08-19] MEDS: 0.9 % Sodium Chloride 1,000 ML IVC SCH ×2 (18:03→22:24)
[2019-08-19 19:06] LABS: Estimated Average Glucose 120 mg/dl
[2019-08-19] MEDS: Sennosides 8.6 MG TABLET PO SCH (20:00)
[2019-08-19] MEDS ORDERED: MAGNESIUM SULFATE PO SCH (21:00)
[2019-08-19] MEDS ORDERED: Levalbuterol Neb 0.63 MG/3 ML IH SCH (22:00)
[2019-08-20 00:05] LABS: BUN/Creatinine Ratio 19 (6-26); Blood Urea Nitrogen 21 mg/dL (8-23); Calcium 8.8 mg/dL (8.6-10.3); Carbon Dioxide 32 mEq/L (23-29); Chloride 86 mEq/L (98-107); Glucose 135 mg/dL (70-105); Osmolality,Calculated 259 (280-300); Potassium 3.8 mEq/L (3.5-5.1); Sodium 122 mEq/L (136-145); eGFR For African Americans > 60 (> 60); eGFR For Non-African Americans > 60 (> 60)
[2019-08-20 06:01] LABS: Hemoglobin 8.8 g/dL (12.9-16.9); Mean Corpuscular HGB Conc 35.2 g/dL (31.6-35.5); Mean Corpuscular Hemoglobin 34.2 pg (28.0-33.3); Mean Corpuscular Volume 97.3 fL (83.0-100.0); Mean Platelet Volume 8.5 fL (9.4-12.4); Platelet Count 125 K/mcL (140-400); Red Blood Count 2.57 M/mcL (4.19-5.50); Red Cell Distribution Width 13.6 % (11.5-14.5); White Blood Count 5.5 K/mcL (4.3-11.1)
[2019-08-20] MEDS: *HR* Enoxaparin 40 MG/0.4 ML SYRINGE SQ SCH (06:02)
[2019-08-20 06:16] LABS: BUN/Creatinine Ratio 20 (6-26); Blood Urea Nitrogen 20 mg/dL (8-23); Calcium 8.7 mg/dL (8.6-10.3); Carbon Dioxide 33 mEq/L (23-29); Chloride 87 mEq/L (98-107); Glucose 105 mg/dL (70-105); Magnesium 1.5 mg/dL (1.6-2.6); Osmolality,Calculated 257 (280-300); Phosphorous 3.2 mg/dL (2.7-4.5); Potassium 3.7 mEq/L (3.5-5.1); Sodium 122 mEq/L (136-145); eGFR For African Americans > 60 (> 60); eGFR For Non-African Americans > 60 (> 60)
[2019-08-20] MEDS: Folic Acid 1 MG TABLET PO SCH (08:02)
[2019-08-20] MEDS: predniSONE 5 MG TABLET PO SCH (08:02)
[2019-08-20] MEDS: Multivit/Ca/Min/Fe/FA 1 TAB TABLET PO SCH (08:02)
[2019-08-20] MEDS: Vitamin B Complex/Vit C/Vit E 1 EACH TABLET PO SCH (08:02)
[2019-08-20] MEDS: Aspirin Enteric Coated 81 MG Tablet PO SCH (08:02)
[2019-08-20] MEDS: Magnesium Oxide 400 MG TABLET PO SCH (08:02)
[2019-08-20] MEDS: Ascorbic Acid 500 MG TABLET PO SCH (08:02)
[2019-08-20] MEDS: Sennosides 8.6 MG TABLET PO SCH ×2 (08:02→22:04)
[2019-08-20] MEDS: Cholecalciferol (D-3) 1,000 UNIT (25MCG) TABLET PO SCH (08:02)
[2019-08-20] MEDS: Metoprolol XL (24 HR) Succ 50 MG TAB.ER.24H PO SCH (08:02)
[2019-08-20] MEDS: 0.9 % Sodium Chloride 1,000 ML IVC SCH ×2 (08:04→20:12)
[2019-08-20 18:46] LABS: BUN/Creatinine Ratio 17 (6-26); Blood Urea Nitrogen 20 mg/dL (8-23); Calcium 8.7 mg/dL (8.6-10.3); Carbon Dioxide 29 mEq/L (23-29); Chloride 92 mEq/L (98-107); Glucose 196 mg/dL (70-105); Magnesium 2.1 mg/dL (1.6-2.6); Osmolality,Calculated 268 (280-300); Potassium 4.2 mEq/L (3.5-5.1); Sodium 125 mEq/L (136-145); eGFR For African Americans > 60 (> 60); eGFR For Non-African Americans 58 (> 60)
[2019-08-20] MEDS: Levalbuterol Neb 0.63 MG/3 ML IH PRN (19:06)
[2019-08-21 05:01] LABS: Hematocrit 24.4 % (37.5-50.1); Hemoglobin 8.4 g/dL (12.9-16.9); Mean Corpuscular HGB Conc 34.4 g/dL (31.6-35.5); Mean Corpuscular Hemoglobin 34.4 pg (28.0-33.3); Platelet Count 104 K/mcL (140-400); Red Blood Count 2.44 M/mcL (4.19-5.50); White Blood Count 6.2 K/mcL (4.3-11.1)
[2019-08-21 05:18] LABS: BUN/Creatinine Ratio 20 (6-26); Blood Urea Nitrogen 17 mg/dL (8-23); Calcium 8.6 mg/dL (8.6-10.3); Carbon Dioxide 32 mEq/L (23-29); Chloride 97 mEq/L (98-107); Glucose 113 mg/dL (70-105); Magnesium 2.1 mg/dL (1.6-2.6); Osmolality,Calculated 272 (280-300); Potassium 3.9 mEq/L (3.5-5.1); Sodium 130 mEq/L (136-145); eGFR For African Americans > 60 (> 60); eGFR For Non-African Americans > 60 (> 60)
[2019-08-21] MEDS: Levalbuterol Neb 0.63 MG/3 ML IH PRN (06:11)
[2019-08-21] MEDS: 0.9 % Sodium Chloride 1,000 ML IVC SCH (06:18)
[2019-08-21] MEDS: *HR* Enoxaparin 40 MG/0.4 ML SYRINGE SQ SCH (06:19)
[2019-08-21] MEDS: Sennosides 8.6 MG TABLET PO SCH (06:53)
[2019-08-21 08:12] VITALS: BP 119/69
[2019-08-21] MEDS: Cholecalciferol (D-3) 1,000 UNIT (25MCG) TABLET PO SCH (08:30)
[2019-08-21] MEDS: Magnesium Oxide 400 MG TABLET PO SCH (08:30)
[2019-08-21] MEDS: Aspirin Enteric Coated 81 MG Tablet PO SCH (08:30)
[2019-08-21] MEDS: Metoprolol XL (24 HR) Succ 50 MG TAB.ER.24H PO SCH (08:30)
[2019-08-21] MEDS: Multivit/Ca/Min/Fe/FA 1 TAB TABLET PO SCH (08:31)
[2019-08-21] MEDS: Vitamin B Complex/Vit C/Vit E 1 EACH TABLET PO SCH (08:31)
[2019-08-21] MEDS: Ascorbic Acid 500 MG TABLET PO SCH (08:31)
[2019-08-21] MEDS: Folic Acid 1 MG TABLET PO SCH (08:31)
[2019-08-21] MEDS: predniSONE 5 MG TABLET PO SCH (08:31)
[2019-08-21] MEDS ORDERED: Levalbuterol Neb 0.63 MG/3 ML IH PRN (10:03)
[2019-08-21] MEDS ORDERED: Furosemide 20 MG/2 ML VIAL IVP ONE (10:04)
[2019-08-21] MEDS ORDERED: Levalbuterol Neb 0.63 MG/3 ML IH SCH (12:00)
== END 2019-08-21 11:45 | disposition home health service (06) ==
LOC: INPGRE 13:22 → EMEROOGRE 13:22 → INPGRE 15:34
PROVIDERS: ADMIT Family Medicine; ATTEND Family Medicine

== ENCOUNTER 2019-09-22 11:11 | Inpatient (IN) ==
[2019-09-23] MEDS ORDERED: Ipratropium/Albuterol Neb 3 ML IH PRN (15:01)
[2019-09-23] MEDS ORDERED: *HR* Dextrose 50 % in Water (Syg) 50 ML SYRINGE IVP PRN (15:49)
[2019-09-23] MEDS ORDERED: D5% in Water 1,000 ML IVC PRN (15:49)
[2019-09-23] MEDS ORDERED: Dextrose Gel 15 GM/37.5 ML TUBE PO PRN ×2 (15:49)
[2019-09-23] MEDS: Insulin LISPRO 300 UNITS/3 ML VIAL SQ SCH (16:57)
[2019-09-23] MEDS: *HR* HYDROcodone/Acet 10/325 mg TABLET PO PRN (18:42)
[2019-09-23] MEDS ORDERED: FLUTICASONE PROPION IH SCH (21:00)
[2019-09-23] MEDS ORDERED: SALMETEROL IH SCH (21:00)
[2019-09-23] MEDS ORDERED: [UNRECOGNIZED DRUG - OTHER] IH SCH (21:00)
[2019-09-23] MEDS: Budesonide/Formoterol 160/4.5 1 PUFF INH IH SCH (21:42)
[2019-09-23] MEDS: *HR* Metformin 500 MG TABLET PO SCH (21:58)
[2019-09-23] MEDS: Torsemide 20 MG TABLET PO SCH (21:59)
[2019-09-23] MEDS: Magnesium Oxide 400 MG TABLET PO SCH (21:59)
[2019-09-23] MEDS ORDERED: *HR* OxyCODONE Immed Rel 5 MG TABLET PO ONE (23:33)
[2019-09-24] MEDS: Sennosides/Docusate Sodium TABLET PO PRN (00:08)
[2019-09-24] MEDS: *HR* Enoxaparin 40 MG/0.4 ML SYRINGE SQ SCH (05:47)
[2019-09-24] MEDS: *HR* HYDROcodone/Acet 10/325 mg TABLET PO PRN ×2 (05:48→19:00)
[2019-09-24 06:20] LABS: Basophils % 0.2 %; Eosinophils # 0.2 K/mcL (0.0-0.6); Eosinophils % 4.2 %; Hematocrit 24.2 % (37.5-50.1); Immature Granulocytes % 0.9 % (0-4); Lymphocytes # 0.8 K/mcL (0.6-4.6); Mean Corpuscular HGB Conc 33.1 g/dL (31.6-35.5); Mean Corpuscular Hemoglobin 31.5 pg (28.0-33.3); Mean Corpuscular Volume 95.3 fL (83.0-100.0); Mean Platelet Volume 8.8 fL (9.4-12.4); Monocytes # 0.6 K/mcL (0.0-1.3); Monocytes % 9.9 %; Neutrophils # 4.1 K/mcL (1.6-8.9); Platelet Count 149 K/mcL (140-400); Red Blood Count 2.54 M/mcL (4.19-5.50); Red Cell Distribution Width 16.4 % (11.5-14.5); Segmented Neutrophils % 71.8 %; White Blood Count 5.8 K/mcL (4.3-11.1)
[2019-09-24 06:28] LABS: BUN/Creatinine Ratio 33 (6-26); Blood Urea Nitrogen 37 mg/dL (8-23); Calcium 8.4 mg/dL (8.6-10.3); Carbon Dioxide 31 mEq/L (23-29); Chloride 95 mEq/L (98-107); Glucose 113 mg/dL (70-105); Osmolality,Calculated 285 (280-300); Potassium 4.3 mEq/L (3.5-5.1); Sodium 133 mEq/L (136-145); eGFR For African Americans > 60 (> 60); eGFR For Non-African Americans > 60 (> 60)
[2019-09-24] MEDS: polyethylene glycoL 3350 17 GM POWD.PACK PO PRN (08:23)
[2019-09-24] MEDS: Multivit/Ca/Min/Fe/FA 1 TAB TABLET PO SCH (08:24)
[2019-09-24] MEDS: Folic Acid 1 MG TABLET PO SCH (08:24)
[2019-09-24] MEDS: Ascorbic Acid 500 MG TABLET PO SCH (08:24)
[2019-09-24] MEDS: Aspirin Enteric Coated 81 MG Tablet PO SCH (08:24)
[2019-09-24] MEDS: Vitamin B Complex/Vit C/Vit E 1 EACH TABLET PO SCH (08:24)
[2019-09-24] MEDS: *HR* Metformin 500 MG TABLET PO SCH ×2 (08:24→20:14)
[2019-09-24] MEDS: Magnesium Oxide 400 MG TABLET PO SCH ×2 (08:24→20:14)
[2019-09-24] MEDS: *HR* Amiodarone 200 MG TABLET PO SCH (08:25)
[2019-09-24] MEDS: Torsemide 20 MG TABLET PO SCH ×2 (08:25→20:14)
[2019-09-24] MEDS: predniSONE 5 MG TABLET PO SCH (08:25)
[2019-09-24] MEDS: Cholecalciferol (D-3) 1,000 UNIT (25MCG) TABLET PO SCH (08:26)
[2019-09-24] MEDS: Insulin LISPRO 300 UNITS/3 ML VIAL SQ SCH ×3 (08:26→17:03)
[2019-09-24] MEDS: Budesonide/Formoterol 160/4.5 1 PUFF INH IH SCH ×2 (08:53→22:41)
[2019-09-24] MEDS: Ipratropium 1 PUFF INHALER IH SCH ×2 (16:34→22:42)
[2019-09-25] MEDS: *HR* HYDROcodone/Acet 10/325 mg TABLET PO PRN ×4 (01:01→21:11)
[2019-09-25] MEDS: Ipratropium 1 PUFF INHALER IH SCH ×4 (04:00→21:06)
[2019-09-25 06:28] LABS: Eosinophils # 0.3 K/mcL (0.0-0.6); Eosinophils % 5.7 %; Hematocrit 21.1 % (37.5-50.1); Hemoglobin 7.1 g/dL (12.9-16.9); Immature Granulocytes % 0.7 % (0-4); Lymphocytes # 0.9 K/mcL (0.6-4.6); Lymphocytes % 20.1 %; Mean Corpuscular HGB Conc 33.6 g/dL (31.6-35.5); Mean Corpuscular Hemoglobin 31.7 pg (28.0-33.3); Mean Corpuscular Volume 94.2 fL (83.0-100.0); Mean Platelet Volume 8.4 fL (9.4-12.4); Monocytes # 0.6 K/mcL (0.0-1.3); Monocytes % 12.9 %; Neutrophils # 2.8 K/mcL (1.6-8.9); Platelet Count 143 K/mcL (140-400); Red Blood Count 2.24 M/mcL (4.19-5.50); Red Cell Distribution Width 16.3 % (11.5-14.5); Segmented Neutrophils % 60.6 %; White Blood Count 4.6 K/mcL (4.3-11.1)
[2019-09-25] MEDS: *HR* Enoxaparin 40 MG/0.4 ML SYRINGE SQ SCH (07:00)
[2019-09-25] MEDS: Sennosides/Docusate Sodium TABLET PO PRN ×2 (07:00→21:08)
[2019-09-25] MEDS: Aspirin Enteric Coated 81 MG Tablet PO SCH (08:14)
[2019-09-25] MEDS: Vitamin B Complex/Vit C/Vit E 1 EACH TABLET PO SCH (08:14)
[2019-09-25] MEDS: Insulin LISPRO 300 UNITS/3 ML VIAL SQ SCH ×3 (08:14→16:39)
[2019-09-25] MEDS: *HR* Metformin 500 MG TABLET PO SCH ×2 (08:15→21:08)
[2019-09-25] MEDS: Cholecalciferol (D-3) 1,000 UNIT (25MCG) TABLET PO SCH (08:15)
[2019-09-25] MEDS: Folic Acid 1 MG TABLET PO SCH (08:15)
[2019-09-25] MEDS: Multivit/Ca/Min/Fe/FA 1 TAB TABLET PO SCH (08:15)
[2019-09-25] MEDS: Magnesium Oxide 400 MG TABLET PO SCH ×2 (08:16→21:08)
[2019-09-25] MEDS: predniSONE 5 MG TABLET PO SCH (08:16)
[2019-09-25] MEDS: *HR* Amiodarone 200 MG TABLET PO SCH (08:16)
[2019-09-25] MEDS: Torsemide 20 MG TABLET PO SCH ×2 (08:16→21:07)
[2019-09-25] MEDS: Ascorbic Acid 500 MG TABLET PO SCH (08:16)
[2019-09-25] MEDS: Budesonide/Formoterol 160/4.5 1 PUFF INH IH SCH ×2 (09:33→21:07)
[2019-09-26] MEDS: Ipratropium 1 PUFF INHALER IH SCH ×4 (03:00→20:20)
[2019-09-26] MEDS: *HR* HYDROcodone/Acet 10/325 mg TABLET PO PRN ×3 (03:22→20:45)
[2019-09-26 05:42] LABS: Basophils % 0.2 %; Eosinophils # 0.3 K/mcL (0.0-0.6); Eosinophils % 4.9 %; Hematocrit 23.9 % (37.5-50.1); Hemoglobin 8.1 g/dL (12.9-16.9); Immature Granulocytes % 0.8 % (0-4); Lymphocytes # 0.8 K/mcL (0.6-4.6); Lymphocytes % 15.8 %; Mean Corpuscular HGB Conc 33.9 g/dL (31.6-35.5); Mean Corpuscular Volume 94.5 fL (83.0-100.0); Mean Platelet Volume 8.8 fL (9.4-12.4); Monocytes # 0.7 K/mcL (0.0-1.3); Monocytes % 13.2 %; Neutrophils # 3.3 K/mcL (1.6-8.9); Platelet Count 176 K/mcL (140-400); Red Blood Count 2.53 M/mcL (4.19-5.50); Segmented Neutrophils % 65.1 %; White Blood Count 5.1 K/mcL (4.3-11.1)
[2019-09-26 05:46] LABS: BUN/Creatinine Ratio 32 (6-26); Blood Urea Nitrogen 39 mg/dL (8-23); Carbon Dioxide 31 mEq/L (23-29); Chloride 95 mEq/L (98-107); Glucose 121 mg/dL (70-105); Osmolality,Calculated 287 (280-300); Potassium 3.8 mEq/L (3.5-5.1); Sodium 133 mEq/L (136-145); eGFR For African Americans > 60 (> 60); eGFR For Non-African Americans 58 (> 60)
[2019-09-26] MEDS: Insulin LISPRO 300 UNITS/3 ML VIAL SQ SCH ×3 (08:14→16:21)
[2019-09-26] MEDS: Aspirin Enteric Coated 81 MG Tablet PO SCH (08:38)
[2019-09-26] MEDS: Vitamin B Complex/Vit C/Vit E 1 EACH TABLET PO SCH (08:38)
[2019-09-26] MEDS: predniSONE 5 MG TABLET PO SCH (08:38)
[2019-09-26] MEDS: Multivit/Ca/Min/Fe/FA 1 TAB TABLET PO SCH (08:39)
[2019-09-26] MEDS: Torsemide 20 MG TABLET PO SCH ×2 (08:39→20:09)
[2019-09-26] MEDS: Ascorbic Acid 500 MG TABLET PO SCH (08:39)
[2019-09-26] MEDS: *HR* Enoxaparin 40 MG/0.4 ML SYRINGE SQ SCH (08:39)
[2019-09-26] MEDS: *HR* Amiodarone 200 MG TABLET PO SCH (08:39)
[2019-09-26] MEDS: Cholecalciferol (D-3) 1,000 UNIT (25MCG) TABLET PO SCH (08:39)
[2019-09-26] MEDS: Folic Acid 1 MG TABLET PO SCH (08:39)
[2019-09-26] MEDS: Magnesium Oxide 400 MG TABLET PO SCH ×2 (08:39→20:08)
[2019-09-26] MEDS: *HR* Metformin 500 MG TABLET PO SCH ×2 (08:39→20:08)
[2019-09-26] MEDS: Sennosides/Docusate Sodium TABLET PO PRN (09:46)
[2019-09-26] MEDS: polyethylene glycoL 3350 17 GM POWD.PACK PO PRN (09:48)
[2019-09-26] MEDS: Budesonide/Formoterol 160/4.5 1 PUFF INH IH SCH ×2 (09:58→20:20)
[2019-09-27] MEDS: Ipratropium/Albuterol Neb 3 ML IH PRN (04:33)
[2019-09-27] MEDS: Ipratropium 1 PUFF INHALER IH SCH ×4 (04:56→20:40)
[2019-09-27] MEDS: *HR* Enoxaparin 40 MG/0.4 ML SYRINGE SQ SCH (06:00)
[2019-09-27 06:03] LABS: Basophils % 0.2 %; Eosinophils # 0.3 K/mcL (0.0-0.6); Eosinophils % 4.6 %; Hematocrit 24.4 % (37.5-50.1); Hemoglobin 8.2 g/dL (12.9-16.9); Immature Granulocytes % 0.6 % (0-4); Lymphocytes # 0.8 K/mcL (0.6-4.6); Lymphocytes % 14.8 %; Mean Corpuscular HGB Conc 33.6 g/dL (31.6-35.5); Mean Corpuscular Hemoglobin 31.8 pg (28.0-33.3); Mean Corpuscular Volume 94.6 fL (83.0-100.0); Mean Platelet Volume 8.3 fL (9.4-12.4); Monocytes # 0.7 K/mcL (0.0-1.3); Neutrophils # 3.7 K/mcL (1.6-8.9); Platelet Count 192 K/mcL (140-400); Red Blood Count 2.58 M/mcL (4.19-5.50); Segmented Neutrophils % 67.8 %; White Blood Count 5.4 K/mcL (4.3-11.1)
[2019-09-27 06:19] LABS: BUN/Creatinine Ratio 30 (6-26); Blood Urea Nitrogen 34 mg/dL (8-23); Calcium 8.1 mg/dL (8.6-10.3); Carbon Dioxide 33 mEq/L (23-29); Chloride 95 mEq/L (98-107); Glucose 110 mg/dL (70-105); Osmolality,Calculated 286 (280-300); Potassium 3.6 mEq/L (3.5-5.1); Sodium 134 mEq/L (136-145); eGFR For African Americans > 60 (> 60); eGFR For Non-African Americans > 60 (> 60)
[2019-09-27] MEDS: Insulin LISPRO 300 UNITS/3 ML VIAL SQ SCH ×3 (07:59→16:18)
[2019-09-27] MEDS: Aspirin Enteric Coated 81 MG Tablet PO SCH (08:09)
[2019-09-27] MEDS: Ascorbic Acid 500 MG TABLET PO SCH (08:09)
[2019-09-27] MEDS: predniSONE 5 MG TABLET PO SCH (08:10)
[2019-09-27] MEDS: Cholecalciferol (D-3) 1,000 UNIT (25MCG) TABLET PO SCH (08:10)
[2019-09-27] MEDS: *HR* Amiodarone 200 MG TABLET PO SCH (08:10)
[2019-09-27] MEDS: Multivit/Ca/Min/Fe/FA 1 TAB TABLET PO SCH (08:10)
[2019-09-27] MEDS: Folic Acid 1 MG TABLET PO SCH (08:10)
[2019-09-27] MEDS: Torsemide 20 MG TABLET PO SCH ×2 (08:10→22:41)
[2019-09-27] MEDS: *HR* Metformin 500 MG TABLET PO SCH ×2 (08:10→22:41)
[2019-09-27] MEDS: Vitamin B Complex/Vit C/Vit E 1 EACH TABLET PO SCH (08:10)
[2019-09-27] MEDS: Magnesium Oxide 400 MG TABLET PO SCH ×2 (08:10→22:41)
[2019-09-27] MEDS: *HR* HYDROcodone/Acet 10/325 mg TABLET PO PRN ×2 (08:29→22:41)
[2019-09-27] MEDS: Sennosides/Docusate Sodium TABLET PO PRN (08:30)
[2019-09-27] MEDS: polyethylene glycoL 3350 17 GM POWD.PACK PO PRN (08:30)
[2019-09-27] MEDS: Budesonide/Formoterol 160/4.5 1 PUFF INH IH SCH ×2 (09:38→20:42)
[2019-09-27] MEDS ORDERED: Bisacodyl 10 MG RECTAL SUPPOSITORY RC STA (12:49)
[2019-09-27] MEDS: Sennosides/Docusate Sodium TABLET PO SCH (22:44)
[2019-09-28] MEDS: Ipratropium/Albuterol Neb 3 ML IH PRN (01:27)
[2019-09-28] MEDS: Ipratropium 1 PUFF INHALER IH SCH ×4 (04:55→21:29)
[2019-09-28] MEDS: *HR* Enoxaparin 40 MG/0.4 ML SYRINGE SQ SCH (06:09)
[2019-09-28] MEDS: Insulin LISPRO 300 UNITS/3 ML VIAL SQ SCH ×3 (07:30→17:14)
[2019-09-28] MEDS: Sennosides/Docusate Sodium TABLET PO SCH ×2 (08:11→21:22)
[2019-09-28] MEDS: Folic Acid 1 MG TABLET PO SCH (08:12)
[2019-09-28] MEDS: Ascorbic Acid 500 MG TABLET PO SCH (08:12)
[2019-09-28] MEDS: Cholecalciferol (D-3) 1,000 UNIT (25MCG) TABLET PO SCH (08:12)
[2019-09-28] MEDS: Vitamin B Complex/Vit C/Vit E 1 EACH TABLET PO SCH (08:12)
[2019-09-28] MEDS: Aspirin Enteric Coated 81 MG Tablet PO SCH (08:12)
[2019-09-28] MEDS: Multivit/Ca/Min/Fe/FA 1 TAB TABLET PO SCH (08:12)
[2019-09-28] MEDS: Torsemide 20 MG TABLET PO SCH ×2 (08:12→21:23)
[2019-09-28] MEDS: *HR* Amiodarone 200 MG TABLET PO SCH (08:12)
[2019-09-28] MEDS: predniSONE 5 MG TABLET PO SCH (08:12)
[2019-09-28] MEDS: *HR* Metformin 500 MG TABLET PO SCH ×2 (08:12→21:22)
[2019-09-28] MEDS: Magnesium Oxide 400 MG TABLET PO SCH ×2 (08:12→21:23)
[2019-09-28] MEDS: polyethylene glycoL 3350 17 GM POWD.PACK PO SCH (08:13)
[2019-09-28] MEDS: *HR* HYDROcodone/Acet 10/325 mg TABLET PO PRN (08:21)
[2019-09-28] MEDS: Budesonide/Formoterol 160/4.5 1 PUFF INH IH SCH ×2 (08:42→21:29)
[2019-09-29] MEDS: Ipratropium/Albuterol Neb 3 ML IH PRN (01:33)
[2019-09-29] MEDS: Ipratropium 1 PUFF INHALER IH SCH ×4 (04:32→22:16)
[2019-09-29] MEDS: *HR* Enoxaparin 40 MG/0.4 ML SYRINGE SQ SCH (05:32)
[2019-09-29] MEDS: *HR* HYDROcodone/Acet 10/325 mg TABLET PO PRN ×2 (07:24→13:01)
[2019-09-29] MEDS: Insulin LISPRO 300 UNITS/3 ML VIAL SQ SCH ×3 (08:03→16:49)
[2019-09-29] MEDS: Vitamin B Complex/Vit C/Vit E 1 EACH TABLET PO SCH (08:27)
[2019-09-29] MEDS: Cholecalciferol (D-3) 1,000 UNIT (25MCG) TABLET PO SCH (08:27)
[2019-09-29] MEDS: Torsemide 20 MG TABLET PO SCH (08:27)
[2019-09-29] MEDS: Ascorbic Acid 500 MG TABLET PO SCH (08:27)
[2019-09-29] MEDS: Aspirin Enteric Coated 81 MG Tablet PO SCH (08:27)
[2019-09-29] MEDS: Folic Acid 1 MG TABLET PO SCH (08:27)
[2019-09-29] MEDS: predniSONE 5 MG TABLET PO SCH (08:27)
[2019-09-29] MEDS: *HR* Amiodarone 200 MG TABLET PO SCH (08:27)
[2019-09-29] MEDS: Multivit/Ca/Min/Fe/FA 1 TAB TABLET PO SCH (08:27)
[2019-09-29] MEDS: *HR* Metformin 500 MG TABLET PO SCH ×2 (08:27→21:29)
[2019-09-29] MEDS: Sennosides/Docusate Sodium TABLET PO SCH ×2 (08:53→20:01)
[2019-09-29] MEDS: Magnesium Oxide 400 MG TABLET PO SCH ×2 (08:53→20:01)
[2019-09-29] MEDS: polyethylene glycoL 3350 17 GM POWD.PACK PO SCH (08:53)
[2019-09-29] MEDS: Budesonide/Formoterol 160/4.5 1 PUFF INH IH SCH ×2 (09:29→22:16)
[2019-09-29] MEDS: levoFLOXacin 750 MG TABLET PO SCH (11:27)
[2019-09-29] MEDS ORDERED: traZODone 50 MG TABLET PO PRN (18:56)
[2019-09-29] MEDS: Melatonin 3 MG TABLET PO PRN (20:01)
[2019-09-30] MEDS: Ipratropium/Albuterol Neb 3 ML IH PRN (02:37)
[2019-09-30 05:17] LABS: Hemoglobin 7.6 g/dL (12.9-16.9); Mean Corpuscular Hemoglobin 31.4 pg (28.0-33.3); Mean Platelet Volume 8.5 fL (9.4-12.4); Platelet Count 220 K/mcL (140-400); Red Blood Count 2.42 M/mcL (4.19-5.50); White Blood Count 6.8 K/mcL (4.3-11.1)
[2019-09-30 05:36] LABS: Alanine Aminotransferase 18 Units/L (7-52); Albumin 2.6 g/dL (3.5-5.7); Alkaline Phosphatase 89 Units/L (34-104); Aspartate Amino Transferase 18 Units/L (13-39); BUN/Creatinine Ratio 27 (6-26); Bilirubin,Total 1.2 mg/dL (0.3-1.0); Blood Urea Nitrogen 29 mg/dL (8-23); Calcium 8.2 mg/dL (8.6-10.3); Carbon Dioxide 32 mEq/L (23-29); Chloride 96 mEq/L (98-107); Globulin 2.6 g/dL (2.4-3.5); Glucose 125 mg/dL (70-105); Magnesium 1.3 mg/dL (1.6-2.6); Osmolality,Calculated 287 (280-300); Potassium 3.6 mEq/L (3.5-5.1); Sodium 135 mEq/L (136-145); Total Protein 5.2 g/dL (6.4-8.9); eGFR For African Americans > 60 (> 60); eGFR For Non-African Americans > 60 (> 60)
[2019-09-30] MEDS: *HR* Enoxaparin 40 MG/0.4 ML SYRINGE SQ SCH (05:36)
[2019-09-30] MEDS: *HR* HYDROcodone/Acet 10/325 mg TABLET PO PRN ×3 (05:41→20:36)
[2019-09-30] MEDS: Ipratropium 1 PUFF INHALER IH SCH ×4 (06:50→22:17)
[2019-09-30] MEDS: polyethylene glycoL 3350 17 GM POWD.PACK PO SCH (08:19)
[2019-09-30] MEDS: Vitamin B Complex/Vit C/Vit E 1 EACH TABLET PO SCH (08:20)
[2019-09-30] MEDS: Aspirin Enteric Coated 81 MG Tablet PO SCH (08:20)
[2019-09-30] MEDS: Multivit/Ca/Min/Fe/FA 1 TAB TABLET PO SCH (08:20)
[2019-09-30] MEDS: Sennosides/Docusate Sodium TABLET PO SCH ×2 (08:20→20:35)
[2019-09-30] MEDS: *HR* Metformin 500 MG TABLET PO SCH ×2 (08:20→20:34)
[2019-09-30] MEDS: Ascorbic Acid 500 MG TABLET PO SCH (08:20)
[2019-09-30] MEDS: Folic Acid 1 MG TABLET PO SCH (08:20)
[2019-09-30] MEDS: Cholecalciferol (D-3) 1,000 UNIT (25MCG) TABLET PO SCH (08:20)
[2019-09-30] MEDS: Magnesium Oxide 400 MG TABLET PO SCH ×2 (08:20→20:35)
[2019-09-30] MEDS: *HR* Amiodarone 200 MG TABLET PO SCH (08:20)
[2019-09-30] MEDS: predniSONE 5 MG TABLET PO SCH (08:21)
[2019-09-30] MEDS: levoFLOXacin 750 MG TABLET PO SCH (08:21)
[2019-09-30] MEDS: Insulin LISPRO 300 UNITS/3 ML VIAL SQ SCH ×3 (08:23→16:17)
[2019-09-30] MEDS: Budesonide/Formoterol 160/4.5 1 PUFF INH IH SCH ×2 (09:45→22:16)
[2019-09-30] MEDS: Melatonin 3 MG TABLET PO PRN (20:36)
[2019-10-01] MEDS: Ipratropium/Albuterol Neb 3 ML IH PRN (04:46)
[2019-10-01] MEDS: Ipratropium 1 PUFF INHALER IH SCH ×4 (04:47→21:43)
[2019-10-01] MEDS: *HR* HYDROcodone/Acet 10/325 mg TABLET PO PRN ×3 (05:08→21:53)
[2019-10-01] MEDS: *HR* Enoxaparin 40 MG/0.4 ML SYRINGE SQ SCH (05:09)
[2019-10-01 06:11] LABS: Hematocrit 22.6 % (37.5-50.1); Hemoglobin 7.4 g/dL (12.9-16.9); Mean Corpuscular HGB Conc 32.7 g/dL (31.6-35.5); Mean Corpuscular Hemoglobin 31.2 pg (28.0-33.3); Mean Corpuscular Volume 95.4 fL (83.0-100.0); Mean Platelet Volume 8.1 fL (9.4-12.4); Platelet Count 217 K/mcL (140-400); Red Blood Count 2.37 M/mcL (4.19-5.50); Red Cell Distribution Width 16.4 % (11.5-14.5); White Blood Count 6.9 K/mcL (4.3-11.1)
[2019-10-01 06:28] LABS: BUN/Creatinine Ratio 23 (6-26); Blood Urea Nitrogen 31 mg/dL (8-23); Calcium 8.3 mg/dL (8.6-10.3); Carbon Dioxide 34 mEq/L (23-29); Chloride 94 mEq/L (98-107); Glucose 99 mg/dL (70-105); Magnesium 1.6 mg/dL (1.6-2.6); Osmolality,Calculated 281 (280-300); Potassium 3.9 mEq/L (3.5-5.1); Sodium 132 mEq/L (136-145); eGFR For African Americans > 60 (> 60); eGFR For Non-African Americans 52 (> 60)
[2019-10-01] MEDS: Insulin LISPRO 300 UNITS/3 ML VIAL SQ SCH ×3 (07:56→17:42)
[2019-10-01] MEDS: Budesonide/Formoterol 160/4.5 1 PUFF INH IH SCH ×2 (08:13→21:45)
[2019-10-01] MEDS: polyethylene glycoL 3350 17 GM POWD.PACK PO SCH (09:06)
[2019-10-01] MEDS: Sennosides/Docusate Sodium TABLET PO SCH ×2 (09:16→21:43)
[2019-10-01] MEDS: *HR* Amiodarone 200 MG TABLET PO SCH (09:16)
[2019-10-01] MEDS: Aspirin Enteric Coated 81 MG Tablet PO SCH (09:16)
[2019-10-01] MEDS: Folic Acid 1 MG TABLET PO SCH (09:16)
[2019-10-01] MEDS: *HR* Metformin 500 MG TABLET PO SCH ×2 (09:16→21:42)
[2019-10-01] MEDS: Multivit/Ca/Min/Fe/FA 1 TAB TABLET PO SCH (09:16)
[2019-10-01] MEDS: levoFLOXacin 750 MG TABLET PO SCH (09:16)
[2019-10-01] MEDS: Vitamin B Complex/Vit C/Vit E 1 EACH TABLET PO SCH (09:16)
[2019-10-01] MEDS: Magnesium Oxide 400 MG TABLET PO SCH ×2 (09:16→21:42)
[2019-10-01] MEDS: predniSONE 5 MG TABLET PO SCH (09:16)
[2019-10-01] MEDS: Cholecalciferol (D-3) 1,000 UNIT (25MCG) TABLET PO SCH (09:17)
[2019-10-01] MEDS: Ascorbic Acid 500 MG TABLET PO SCH (09:17)
[2019-10-01] MEDS: Torsemide 20 MG TABLET PO SCH (21:42)
[2019-10-02] MEDS: Ipratropium/Albuterol Neb 3 ML IH PRN (02:11)
[2019-10-02] MEDS: Ipratropium 1 PUFF INHALER IH SCH ×4 (04:29→21:47)
[2019-10-02] MEDS: *HR* Enoxaparin 40 MG/0.4 ML SYRINGE SQ SCH (06:01)
[2019-10-02] MEDS: *HR* HYDROcodone/Acet 10/325 mg TABLET PO PRN ×2 (07:46→20:25)
[2019-10-02] MEDS: Ascorbic Acid 500 MG TABLET PO SCH (07:46)
[2019-10-02] MEDS: *HR* Amiodarone 200 MG TABLET PO SCH (07:47)
[2019-10-02] MEDS: levoFLOXacin 750 MG TABLET PO SCH (07:47)
[2019-10-02] MEDS: Sennosides/Docusate Sodium TABLET PO SCH ×2 (07:47→20:26)
[2019-10-02] MEDS: Aspirin Enteric Coated 81 MG Tablet PO SCH (07:47)
[2019-10-02] MEDS: Torsemide 20 MG TABLET PO SCH ×2 (07:47→20:25)
[2019-10-02] MEDS: predniSONE 5 MG TABLET PO SCH (07:47)
[2019-10-02] MEDS: *HR* Metformin 500 MG TABLET PO SCH ×2 (07:48→20:25)
[2019-10-02] MEDS: Magnesium Oxide 400 MG TABLET PO SCH ×2 (07:48→20:25)
[2019-10-02] MEDS: Multivit/Ca/Min/Fe/FA 1 TAB TABLET PO SCH (07:48)
[2019-10-02] MEDS: Vitamin B Complex/Vit C/Vit E 1 EACH TABLET PO SCH (07:48)
[2019-10-02] MEDS: Insulin LISPRO 300 UNITS/3 ML VIAL SQ SCH ×3 (07:51→16:47)
[2019-10-02] MEDS: polyethylene glycoL 3350 17 GM POWD.PACK PO SCH (07:52)
[2019-10-02] MEDS: Cholecalciferol (D-3) 1,000 UNIT (25MCG) TABLET PO SCH (07:52)
[2019-10-02] MEDS: Folic Acid 1 MG TABLET PO SCH (07:54)
[2019-10-02] MEDS: Budesonide/Formoterol 160/4.5 1 PUFF INH IH SCH ×2 (11:11→21:49)
[2019-10-03] MEDS: Ipratropium 1 PUFF INHALER IH SCH ×4 (04:41→21:58)
[2019-10-03] MEDS: *HR* Enoxaparin 40 MG/0.4 ML SYRINGE SQ SCH (06:06)
[2019-10-03] MEDS: Insulin LISPRO 300 UNITS/3 ML VIAL SQ SCH ×3 (07:59→17:13)
[2019-10-03] MEDS: Cholecalciferol (D-3) 1,000 UNIT (25MCG) TABLET PO SCH (08:41)
[2019-10-03] MEDS: Ascorbic Acid 500 MG TABLET PO SCH (08:41)
[2019-10-03] MEDS: Multivit/Ca/Min/Fe/FA 1 TAB TABLET PO SCH (08:41)
[2019-10-03] MEDS: *HR* Amiodarone 200 MG TABLET PO SCH (08:41)
[2019-10-03] MEDS: predniSONE 5 MG TABLET PO SCH (08:41)
[2019-10-03] MEDS: *HR* HYDROcodone/Acet 10/325 mg TABLET PO PRN ×3 (08:42→21:42)
[2019-10-03] MEDS: *HR* Metformin 500 MG TABLET PO SCH ×2 (08:42→20:54)
[2019-10-03] MEDS: Torsemide 20 MG TABLET PO SCH ×2 (08:42→20:54)
[2019-10-03] MEDS: Folic Acid 1 MG TABLET PO SCH (08:43)
[2019-10-03] MEDS: levoFLOXacin 750 MG TABLET PO SCH (08:43)
[2019-10-03] MEDS: Vitamin B Complex/Vit C/Vit E 1 EACH TABLET PO SCH (08:43)
[2019-10-03] MEDS: polyethylene glycoL 3350 17 GM POWD.PACK PO SCH (08:44)
[2019-10-03] MEDS: Aspirin Enteric Coated 81 MG Tablet PO SCH ×3 (08:44→15:37)
[2019-10-03] MEDS: Sennosides/Docusate Sodium TABLET PO SCH ×2 (08:44→20:53)
[2019-10-03] MEDS: Magnesium Oxide 400 MG TABLET PO SCH ×2 (08:57→20:53)
[2019-10-03] MEDS: Budesonide/Formoterol 160/4.5 1 PUFF INH IH SCH ×2 (09:34→21:59)
[2019-10-04] MEDS: Melatonin 3 MG TABLET PO PRN (02:15)
[2019-10-04] MEDS: *HR* HYDROcodone/Acet 10/325 mg TABLET PO PRN ×3 (03:55→19:32)
[2019-10-04] MEDS: Ipratropium 1 PUFF INHALER IH SCH ×4 (04:25→22:41)
[2019-10-04] MEDS: *HR* Enoxaparin 40 MG/0.4 ML SYRINGE SQ SCH (06:10)
[2019-10-04] MEDS: polyethylene glycoL 3350 17 GM POWD.PACK PO SCH (08:35)
[2019-10-04] MEDS: Folic Acid 1 MG TABLET PO SCH (08:35)
[2019-10-04] MEDS: Aspirin Enteric Coated 81 MG Tablet PO SCH (08:35)
[2019-10-04] MEDS: Ascorbic Acid 500 MG TABLET PO SCH (08:36)
[2019-10-04] MEDS: levoFLOXacin 750 MG TABLET PO SCH (08:36)
[2019-10-04] MEDS: *HR* Amiodarone 200 MG TABLET PO SCH (08:36)
[2019-10-04] MEDS: Magnesium Oxide 400 MG TABLET PO SCH ×2 (08:36→19:32)
[2019-10-04] MEDS: Insulin LISPRO 300 UNITS/3 ML VIAL SQ SCH ×3 (08:36→17:13)
[2019-10-04] MEDS: Vitamin B Complex/Vit C/Vit E 1 EACH TABLET PO SCH (08:36)
[2019-10-04] MEDS: Cholecalciferol (D-3) 1,000 UNIT (25MCG) TABLET PO SCH (08:36)
[2019-10-04] MEDS: Torsemide 20 MG TABLET PO SCH ×2 (08:36→19:32)
[2019-10-04] MEDS: Multivit/Ca/Min/Fe/FA 1 TAB TABLET PO SCH (08:36)
[2019-10-04] MEDS: Sennosides/Docusate Sodium TABLET PO SCH ×2 (08:36→19:32)
[2019-10-04] MEDS: predniSONE 5 MG TABLET PO SCH (08:36)
[2019-10-04] MEDS: *HR* Metformin 500 MG TABLET PO SCH ×2 (08:36→19:32)
[2019-10-04] MEDS: Budesonide/Formoterol 160/4.5 1 PUFF INH IH SCH ×2 (11:08→22:42)
[2019-10-05] MEDS: Ipratropium 1 PUFF INHALER IH SCH ×4 (04:20→21:25)
[2019-10-05 05:44] LABS: Basophils % 0.1 %; Eosinophils # 0.1 K/mcL (0.0-0.6); Eosinophils % 1.7 %; Hematocrit 23.3 % (37.5-50.1); Hemoglobin 7.7 g/dL (12.9-16.9); Immature Granulocytes % 0.9 % (0-4); Mean Corpuscular Hemoglobin 31.8 pg (28.0-33.3); Mean Corpuscular Volume 96.3 fL (83.0-100.0); Mean Platelet Volume 7.8 fL (9.4-12.4); Monocytes # 0.7 K/mcL (0.0-1.3); Monocytes % 9.1 %; Neutrophils # 6.2 K/mcL (1.6-8.9); Platelet Count 186 K/mcL (140-400); Red Blood Count 2.42 M/mcL (4.19-5.50); Red Cell Distribution Width 16.4 % (11.5-14.5); Segmented Neutrophils % 76.2 %; White Blood Count 8.2 K/mcL (4.3-11.1)
[2019-10-05] MEDS: *HR* Enoxaparin 40 MG/0.4 ML SYRINGE SQ SCH (05:48)
[2019-10-05] MEDS: *HR* HYDROcodone/Acet 10/325 mg TABLET PO PRN ×3 (05:48→22:13)
[2019-10-05] MEDS: Insulin LISPRO 300 UNITS/3 ML VIAL SQ SCH ×3 (07:35→16:35)
[2019-10-05] MEDS: polyethylene glycoL 3350 17 GM POWD.PACK PO SCH (07:59)
[2019-10-05] MEDS: Ascorbic Acid 500 MG TABLET PO SCH (08:00)
[2019-10-05] MEDS: Torsemide 20 MG TABLET PO SCH ×2 (08:00→21:05)
[2019-10-05] MEDS: Vitamin B Complex/Vit C/Vit E 1 EACH TABLET PO SCH (08:00)
[2019-10-05] MEDS: Magnesium Oxide 400 MG TABLET PO SCH ×2 (08:00→21:04)
[2019-10-05] MEDS: predniSONE 5 MG TABLET PO SCH (08:00)
[2019-10-05] MEDS: *HR* Metformin 500 MG TABLET PO SCH ×2 (08:00→21:04)
[2019-10-05] MEDS: *HR* Amiodarone 200 MG TABLET PO SCH (08:00)
[2019-10-05] MEDS: Folic Acid 1 MG TABLET PO SCH (08:00)
[2019-10-05] MEDS: Aspirin Enteric Coated 81 MG Tablet PO SCH (08:00)
[2019-10-05] MEDS: Sennosides/Docusate Sodium TABLET PO SCH ×2 (08:00→21:05)
[2019-10-05] MEDS: Cholecalciferol (D-3) 1,000 UNIT (25MCG) TABLET PO SCH (08:01)
[2019-10-05] MEDS: Multivit/Ca/Min/Fe/FA 1 TAB TABLET PO SCH (08:01)
[2019-10-05] MEDS ORDERED: Budesonide/Formoterol 80/4.5 1 PUFF INH IH SCH (10:00)
[2019-10-05] MEDS: Budesonide/Formoterol 160/4.5 1 PUFF INH IH SCH ×2 (11:00→21:25)
[2019-10-05] MEDS: predniSONE 20 MG TABLET PO SCH (16:41)
[2019-10-06] MEDS: Ipratropium 1 PUFF INHALER IH SCH ×4 (04:15→21:26)
[2019-10-06] MEDS: *HR* Enoxaparin 40 MG/0.4 ML SYRINGE SQ SCH (05:46)
[2019-10-06] MEDS: *HR* HYDROcodone/Acet 10/325 mg TABLET PO PRN ×3 (05:51→22:50)
[2019-10-06] MEDS: Insulin LISPRO 300 UNITS/3 ML VIAL SQ SCH ×3 (07:46→17:18)
[2019-10-06] MEDS: predniSONE 5 MG TABLET PO SCH (08:03)
[2019-10-06] MEDS: Magnesium Oxide 400 MG TABLET PO SCH ×2 (08:06→21:34)
[2019-10-06] MEDS: Vitamin B Complex/Vit C/Vit E 1 EACH TABLET PO SCH (08:06)
[2019-10-06] MEDS: Aspirin Enteric Coated 81 MG Tablet PO SCH (08:07)
[2019-10-06] MEDS: Sennosides/Docusate Sodium TABLET PO SCH ×2 (08:07→21:36)
[2019-10-06] MEDS: Torsemide 20 MG TABLET PO SCH ×2 (08:07→21:35)
[2019-10-06] MEDS: Folic Acid 1 MG TABLET PO SCH (08:07)
[2019-10-06] MEDS: predniSONE 20 MG TABLET PO SCH (08:07)
[2019-10-06] MEDS: *HR* Amiodarone 200 MG TABLET PO SCH (08:08)
[2019-10-06] MEDS: polyethylene glycoL 3350 17 GM POWD.PACK PO SCH (08:08)
[2019-10-06] MEDS: Cholecalciferol (D-3) 1,000 UNIT (25MCG) TABLET PO SCH (08:08)
[2019-10-06] MEDS: *HR* Metformin 500 MG TABLET PO SCH ×2 (08:08→21:35)
[2019-10-06] MEDS: Multivit/Ca/Min/Fe/FA 1 TAB TABLET PO SCH (08:08)
[2019-10-06] MEDS: Ascorbic Acid 500 MG TABLET PO SCH (08:08)
[2019-10-06] MEDS: Budesonide/Formoterol 160/4.5 1 PUFF INH IH SCH ×2 (09:32→21:25)
[2019-10-07] MEDS: Ipratropium/Albuterol Neb 3 ML IH PRN (00:41)
[2019-10-07] MEDS: Ipratropium 1 PUFF INHALER IH SCH ×4 (04:37→22:05)
[2019-10-07] MEDS: *HR* Enoxaparin 40 MG/0.4 ML SYRINGE SQ SCH (06:16)
[2019-10-07] MEDS: Insulin LISPRO 300 UNITS/3 ML VIAL SQ SCH ×3 (07:46→16:44)
[2019-10-07] MEDS: Aspirin Enteric Coated 81 MG Tablet PO SCH (08:46)
[2019-10-07] MEDS: polyethylene glycoL 3350 17 GM POWD.PACK PO SCH (08:46)
[2019-10-07] MEDS: Ascorbic Acid 500 MG TABLET PO SCH (08:46)
[2019-10-07] MEDS: Magnesium Oxide 400 MG TABLET PO SCH ×2 (08:46→21:35)
[2019-10-07] MEDS: *HR* Amiodarone 200 MG TABLET PO SCH (08:46)
[2019-10-07] MEDS: Cholecalciferol (D-3) 1,000 UNIT (25MCG) TABLET PO SCH (08:47)
[2019-10-07] MEDS: predniSONE 20 MG TABLET PO SCH (08:47)
[2019-10-07] MEDS: Vitamin B Complex/Vit C/Vit E 1 EACH TABLET PO SCH (08:47)
[2019-10-07] MEDS: *HR* Metformin 500 MG TABLET PO SCH ×2 (08:47→21:35)
[2019-10-07] MEDS: Multivit/Ca/Min/Fe/FA 1 TAB TABLET PO SCH (08:47)
[2019-10-07] MEDS: Sennosides/Docusate Sodium TABLET PO SCH ×2 (08:47→21:40)
[2019-10-07] MEDS: Folic Acid 1 MG TABLET PO SCH (08:48)
[2019-10-07] MEDS: *HR* HYDROcodone/Acet 10/325 mg TABLET PO PRN ×2 (08:56→15:53)
[2019-10-07] MEDS: Torsemide 20 MG TABLET PO SCH ×2 (09:38→21:40)
[2019-10-07] MEDS: Budesonide/Formoterol 160/4.5 1 PUFF INH IH SCH ×2 (11:10→22:05)
[2019-10-08] MEDS: Ipratropium/Albuterol Neb 3 ML IH PRN (00:37)
[2019-10-08] MEDS: *HR* Enoxaparin 40 MG/0.4 ML SYRINGE SQ SCH (05:59)
[2019-10-08] MEDS: *HR* HYDROcodone/Acet 10/325 mg TABLET PO PRN ×3 (05:59→21:27)
[2019-10-08] MEDS: Ipratropium 1 PUFF INHALER IH SCH ×4 (06:06→21:26)
[2019-10-08] MEDS: Insulin LISPRO 300 UNITS/3 ML VIAL SQ SCH ×3 (07:53→16:44)
[2019-10-08] MEDS: Aspirin Enteric Coated 81 MG Tablet PO SCH (08:15)
[2019-10-08] MEDS: Torsemide 20 MG TABLET PO SCH ×2 (08:15→20:13)
[2019-10-08] MEDS: Cholecalciferol (D-3) 1,000 UNIT (25MCG) TABLET PO SCH (08:15)
[2019-10-08] MEDS: predniSONE 20 MG TABLET PO SCH (08:15)
[2019-10-08] MEDS: Ascorbic Acid 500 MG TABLET PO SCH (08:15)
[2019-10-08] MEDS: *HR* Amiodarone 200 MG TABLET PO SCH (08:15)
[2019-10-08] MEDS: Multivit/Ca/Min/Fe/FA 1 TAB TABLET PO SCH (08:15)
[2019-10-08] MEDS: Vitamin B Complex/Vit C/Vit E 1 EACH TABLET PO SCH (08:15)
[2019-10-08] MEDS: Magnesium Oxide 400 MG TABLET PO SCH ×2 (08:15→20:13)
[2019-10-08] MEDS: Folic Acid 1 MG TABLET PO SCH (08:16)
[2019-10-08] MEDS: *HR* Metformin 500 MG TABLET PO SCH ×2 (08:16→20:13)
[2019-10-08] MEDS: polyethylene glycoL 3350 17 GM POWD.PACK PO SCH (08:22)
[2019-10-08] MEDS: Sennosides/Docusate Sodium TABLET PO SCH ×2 (08:22→20:14)
[2019-10-08] MEDS: Budesonide/Formoterol 160/4.5 1 PUFF INH IH SCH ×2 (10:28→21:26)
[2019-10-09] MEDS: Ipratropium/Albuterol Neb 3 ML IH PRN (01:28)
[2019-10-09] MEDS: Ipratropium 1 PUFF INHALER IH SCH ×4 (05:05→22:47)
[2019-10-09 05:11] LABS: Eosinophils % 0.1 %; Hematocrit 22.9 % (37.5-50.1); Hemoglobin 7.5 g/dL (12.9-16.9); Immature Granulocytes % 2.6 % (0-4); Lymphocytes % 11.7 %; Mean Corpuscular HGB Conc 32.8 g/dL (31.6-35.5); Mean Corpuscular Hemoglobin 31.5 pg (28.0-33.3); Mean Corpuscular Volume 96.2 fL (83.0-100.0); Mean Platelet Volume 8.3 fL (9.4-12.4); Monocytes # 0.6 K/mcL (0.0-1.3); Monocytes % 7.2 %; Neutrophils # 6.4 K/mcL (1.6-8.9); Platelet Count 181 K/mcL (140-400); Red Blood Count 2.38 M/mcL (4.19-5.50); Red Cell Distribution Width 16.3 % (11.5-14.5); Segmented Neutrophils % 78.4 %; White Blood Count 8.1 K/mcL (4.3-11.1)
[2019-10-09 05:28] LABS: BUN/Creatinine Ratio 43 (6-26); Blood Urea Nitrogen 51 mg/dL (8-23); Calcium 8.7 mg/dL (8.6-10.3); Carbon Dioxide 36 mEq/L (23-29); Chloride 94 mEq/L (98-107); Glucose 93 mg/dL (70-105); Osmolality,Calculated 295 (280-300); Sodium 136 mEq/L (136-145); eGFR For African Americans > 60 (> 60); eGFR For Non-African Americans 59 (> 60)
[2019-10-09] MEDS: *HR* Enoxaparin 40 MG/0.4 ML SYRINGE SQ SCH (06:04)
[2019-10-09] MEDS: Insulin LISPRO 300 UNITS/3 ML VIAL SQ SCH ×3 (07:53→17:00)
[2019-10-09] MEDS: Folic Acid 1 MG TABLET PO SCH (08:45)
[2019-10-09] MEDS: Cholecalciferol (D-3) 1,000 UNIT (25MCG) TABLET PO SCH (08:45)
[2019-10-09] MEDS: predniSONE 20 MG TABLET PO SCH (08:45)
[2019-10-09] MEDS: Aspirin Enteric Coated 81 MG Tablet PO SCH (08:45)
[2019-10-09] MEDS: *HR* Amiodarone 200 MG TABLET PO SCH (08:45)
[2019-10-09] MEDS: Magnesium Oxide 400 MG TABLET PO SCH ×2 (08:45→20:08)
[2019-10-09] MEDS: Torsemide 20 MG TABLET PO SCH ×2 (08:45→20:07)
[2019-10-09] MEDS: *HR* Metformin 500 MG TABLET PO SCH ×2 (08:45→20:08)
[2019-10-09] MEDS: Multivit/Ca/Min/Fe/FA 1 TAB TABLET PO SCH (08:45)
[2019-10-09] MEDS: Vitamin B Complex/Vit C/Vit E 1 EACH TABLET PO SCH (08:45)
[2019-10-09] MEDS: Ascorbic Acid 500 MG TABLET PO SCH (08:45)
[2019-10-09] MEDS: Sennosides/Docusate Sodium TABLET PO SCH ×2 (08:46→20:08)
[2019-10-09] MEDS: polyethylene glycoL 3350 17 GM POWD.PACK PO SCH (08:46)
[2019-10-09] MEDS: Budesonide/Formoterol 160/4.5 1 PUFF INH IH SCH ×2 (09:01→22:48)
[2019-10-09] MEDS: *HR* HYDROcodone/Acet 10/325 mg TABLET PO PRN ×2 (14:01→20:07)
[2019-10-10] MEDS: Ipratropium/Albuterol Neb 3 ML IH PRN (04:11)
[2019-10-10] MEDS: Ipratropium 1 PUFF INHALER IH SCH ×4 (04:12→21:47)
[2019-10-10] MEDS: *HR* HYDROcodone/Acet 10/325 mg TABLET PO PRN ×2 (05:14→17:30)
[2019-10-10] MEDS: *HR* Enoxaparin 40 MG/0.4 ML SYRINGE SQ SCH (05:15)
[2019-10-10] MEDS: Insulin LISPRO 300 UNITS/3 ML VIAL SQ SCH ×3 (07:37→17:29)
[2019-10-10] MEDS: predniSONE 20 MG TABLET PO SCH (08:15)
[2019-10-10] MEDS: Vitamin B Complex/Vit C/Vit E 1 EACH TABLET PO SCH (08:15)
[2019-10-10] MEDS: Multivit/Ca/Min/Fe/FA 1 TAB TABLET PO SCH (08:15)
[2019-10-10] MEDS: Cholecalciferol (D-3) 1,000 UNIT (25MCG) TABLET PO SCH (08:16)
[2019-10-10] MEDS: Ascorbic Acid 500 MG TABLET PO SCH (08:16)
[2019-10-10] MEDS: Torsemide 20 MG TABLET PO SCH ×2 (08:16→20:22)
[2019-10-10] MEDS: Magnesium Oxide 400 MG TABLET PO SCH ×2 (08:16→20:23)
[2019-10-10] MEDS: Aspirin Enteric Coated 81 MG Tablet PO SCH (08:16)
[2019-10-10] MEDS: Folic Acid 1 MG TABLET PO SCH (08:16)
[2019-10-10] MEDS: *HR* Amiodarone 200 MG TABLET PO SCH (08:16)
[2019-10-10] MEDS: Sennosides/Docusate Sodium TABLET PO SCH ×2 (08:17→20:21)
[2019-10-10] MEDS: *HR* Metformin 500 MG TABLET PO SCH ×2 (08:17→20:23)
[2019-10-10] MEDS: polyethylene glycoL 3350 17 GM POWD.PACK PO SCH (08:17)
[2019-10-10] MEDS: Budesonide/Formoterol 160/4.5 1 PUFF INH IH SCH ×2 (10:27→21:47)
[2019-10-11] MEDS: Ipratropium 1 PUFF INHALER IH SCH ×2 (03:54→09:32)
[2019-10-11] MEDS: *HR* HYDROcodone/Acet 10/325 mg TABLET PO PRN (05:11)
[2019-10-11] MEDS: *HR* Enoxaparin 40 MG/0.4 ML SYRINGE SQ SCH (05:11)
[2019-10-11 07:12] VITALS: BP 133/55
[2019-10-11] MEDS: Insulin LISPRO 300 UNITS/3 ML VIAL SQ SCH ×2 (07:27→11:15)
[2019-10-11] MEDS: polyethylene glycoL 3350 17 GM POWD.PACK PO SCH (07:45)
[2019-10-11] MEDS: *HR* Metformin 500 MG TABLET PO SCH (07:47)
[2019-10-11] MEDS: Vitamin B Complex/Vit C/Vit E 1 EACH TABLET PO SCH (07:47)
[2019-10-11] MEDS: Aspirin Enteric Coated 81 MG Tablet PO SCH (07:47)
[2019-10-11] MEDS: Cholecalciferol (D-3) 1,000 UNIT (25MCG) TABLET PO SCH (07:47)
[2019-10-11] MEDS: Ascorbic Acid 500 MG TABLET PO SCH (07:48)
[2019-10-11] MEDS: Folic Acid 1 MG TABLET PO SCH (07:48)
[2019-10-11] MEDS: Multivit/Ca/Min/Fe/FA 1 TAB TABLET PO SCH (07:48)
[2019-10-11] MEDS: Magnesium Oxide 400 MG TABLET PO SCH (07:48)
[2019-10-11] MEDS: Torsemide 20 MG TABLET PO SCH (07:48)
[2019-10-11] MEDS: predniSONE 5 MG TABLET PO SCH (07:48)
[2019-10-11] MEDS: Sennosides/Docusate Sodium TABLET PO SCH (07:48)
[2019-10-11] MEDS: *HR* Amiodarone 200 MG TABLET PO SCH (07:48)
[2019-10-11] MEDS: Budesonide/Formoterol 160/4.5 1 PUFF INH IH SCH (09:33)
== END 2019-10-11 13:44 | disposition home health service (06) | DRG 559 ==
LOC: INPGRE 09-23 14:47
PROVIDERS: ADMIT Family Medicine; ATTEND Family Medicine

== ENCOUNTER 2022-01-10 13:26 | Inpatient (IN) ==
[2022-01-10] MEDS ORDERED: Ipratropium/Albuterol Neb 3 ML IH PRN (16:25)
[2022-01-10] MEDS: *HR* HYDROcodone/Acet 10/325 mg TABLET PO PRN (18:53)
[2022-01-10] MEDS: Budesonide/Formoterol 80/4.5 1 PUFF INH IH SCH (21:51)
[2022-01-10] MEDS: Torsemide 20 MG TABLET PO SCH (22:10)
[2022-01-11 05:16] LABS: Basophils % 0.1 %; Eosinophils # 0.2 K/mcL (0.0-0.6); Eosinophils % 2.5 %; Hematocrit 25.8 % (37.5-50.1); Hemoglobin 8.5 g/dL (12.9-16.9); Immature Granulocytes % 0.8 % (0-4); Lymphocytes # 0.8 K/mcL (0.6-4.6); Lymphocytes % 7.7 %; Mean Corpuscular HGB Conc 32.9 g/dL (31.6-35.5); Mean Corpuscular Hemoglobin 32.1 pg (28.0-33.3); Mean Corpuscular Volume 97.4 fL (83.0-100.0); Mean Platelet Volume 9.2 fL (9.4-12.4); Monocytes # 0.5 K/mcL (0.0-1.3); Monocytes % 5.3 %; Neutrophils # 8.1 K/mcL (1.6-8.9); Platelet Count 101 K/mcL (140-400); Red Blood Count 2.65 M/mcL (4.19-5.50); Segmented Neutrophils % 83.6 %; White Blood Count 9.7 K/mcL (4.3-11.1)
[2022-01-11 05:31] LABS: Potassium 4.2 mEq/L (3.5-5.1)
[2022-01-11] MEDS: *HR* Enoxaparin 40 MG/0.4 ML SYRINGE SQ SCH (06:00)
[2022-01-11] MEDS: *HR* HYDROcodone/Acet 10/325 mg TABLET PO PRN ×3 (06:00→19:35)
[2022-01-11] MEDS: Cholecalciferol (D-3) 1,000 UNIT (25MCG) TABLET PO SCH (08:42)
[2022-01-11] MEDS: Folic Acid 1 MG TABLET PO SCH (08:42)
[2022-01-11] MEDS: polyethylene glycoL 3350 17 GM POWD.PACK PO SCH (08:43)
[2022-01-11] MEDS: Ascorbic Acid 500 MG TABLET PO SCH (08:43)
[2022-01-11] MEDS: Aspirin Enteric Coated 81 MG Tablet PO SCH (08:43)
[2022-01-11] MEDS: Vitamin B Complex/Vit C/Vit E 1 EACH TABLET PO SCH (08:43)
[2022-01-11] MEDS: Metoprolol XL (24 HR) Succ 25 MG TAB.ER.24H PO SCH (08:52)
[2022-01-11] MEDS ORDERED: predniSONE 5 MG TABLET PO SCH (09:00)
[2022-01-11] MEDS: Budesonide/Formoterol 80/4.5 1 PUFF INH IH SCH ×2 (10:19→21:25)
[2022-01-11] MEDS: Torsemide 20 MG TABLET PO SCH ×2 (12:11→15:50)
[2022-01-11] MEDS: predniSONE 20 MG TABLET PO SCH (12:14)
[2022-01-11] MEDS: Ipratropium/Albuterol Neb 3 ML IH SCH ×3 (12:55→21:25)
[2022-01-11] MEDS ORDERED: Dextrose Gel 15 GM/37.5 ML TUBE PO PRN ×2 (19:38)
[2022-01-11] MEDS ORDERED: *HR* Dextrose 50 % in Water (Syg) 50 ML SYRINGE IVP PRN (19:38)
[2022-01-11] MEDS ORDERED: D5% in Water 1,000 ML IVC PRN (19:38)
[2022-01-11] MEDS: Insulin LISPRO 300 UNITS/3 ML VIAL SUBQ SCH (22:30)
[2022-01-12] MEDS: Ipratropium/Albuterol Neb 3 ML IH SCH ×4 (03:51→21:28)
[2022-01-12] MEDS: *HR* Enoxaparin 40 MG/0.4 ML SYRINGE SQ SCH (04:11)
[2022-01-12] MEDS: *HR* HYDROcodone/Acet 10/325 mg TABLET PO PRN ×2 (04:14→20:06)
[2022-01-12] MEDS: Cholecalciferol (D-3) 1,000 UNIT (25MCG) TABLET PO SCH (08:17)
[2022-01-12] MEDS: Vitamin B Complex/Vit C/Vit E 1 EACH TABLET PO SCH (08:17)
[2022-01-12] MEDS: Insulin LISPRO 300 UNITS/3 ML VIAL SUBQ SCH ×4 (08:17→20:05)
[2022-01-12] MEDS: Aspirin Enteric Coated 81 MG Tablet PO SCH (08:18)
[2022-01-12] MEDS: Ascorbic Acid 500 MG TABLET PO SCH (08:18)
[2022-01-12] MEDS: *HR* Amiodarone 200 MG TABLET PO SCH (08:18)
[2022-01-12] MEDS: Torsemide 20 MG TABLET PO SCH ×2 (08:18→16:45)
[2022-01-12] MEDS: Folic Acid 1 MG TABLET PO SCH (08:18)
[2022-01-12] MEDS: polyethylene glycoL 3350 17 GM POWD.PACK PO SCH (08:18)
[2022-01-12] MEDS: predniSONE 20 MG TABLET PO SCH (08:18)
[2022-01-12] MEDS: Metoprolol XL (24 HR) Succ 25 MG TAB.ER.24H PO SCH (08:18)
[2022-01-12] MEDS: Budesonide/Formoterol 80/4.5 1 PUFF INH IH SCH ×2 (10:14→21:28)
[2022-01-13] MEDS: Ipratropium/Albuterol Neb 3 ML IH SCH ×4 (04:08→21:46)
[2022-01-13 04:28] LABS: Mean Corpuscular Hemoglobin 31.3 pg (28.0-33.3); Mean Corpuscular Volume 97.7 fL (83.0-100.0); Mean Platelet Volume 9.3 fL (9.4-12.4); Platelet Count 123 K/mcL (140-400); Red Blood Count 2.56 M/mcL (4.19-5.50); Red Cell Distribution Width 13.6 % (11.5-14.5); White Blood Count 9.4 K/mcL (4.3-11.1)
[2022-01-13] MEDS: *HR* Enoxaparin 40 MG/0.4 ML SYRINGE SQ SCH (04:40)
[2022-01-13] MEDS: polyethylene glycoL 3350 17 GM POWD.PACK PO SCH (04:40)
[2022-01-13] MEDS: *HR* HYDROcodone/Acet 10/325 mg TABLET PO PRN ×2 (04:40→17:55)
[2022-01-13 04:43] LABS: Albumin/Globulin Ratio 1.3 (1.1-2.2); Bilirubin,Total 0.6 mg/dL (0.3-1.0); Calcium 7.9 mg/dL (8.6-10.3); Globulin 2.3 g/dL (2.4-3.5); Magnesium 1.9 mg/dL (1.6-2.6); Potassium 4.1 mEq/L (3.5-5.1); Total Protein 5.3 g/dL (6.4-8.9)
[2022-01-13] MEDS: Cholecalciferol (D-3) 1,000 UNIT (25MCG) TABLET PO SCH (08:57)
[2022-01-13] MEDS: predniSONE 20 MG TABLET PO SCH (08:57)
[2022-01-13] MEDS: Folic Acid 1 MG TABLET PO SCH (08:57)
[2022-01-13] MEDS: Aspirin Enteric Coated 81 MG Tablet PO SCH (08:57)
[2022-01-13] MEDS: Ascorbic Acid 500 MG TABLET PO SCH (08:57)
[2022-01-13] MEDS: Vitamin B Complex/Vit C/Vit E 1 EACH TABLET PO SCH (08:57)
[2022-01-13] MEDS: Torsemide 20 MG TABLET PO SCH ×2 (08:57→16:32)
[2022-01-13] MEDS: Metoprolol XL (24 HR) Succ 25 MG TAB.ER.24H PO SCH (08:57)
[2022-01-13] MEDS: Insulin LISPRO 300 UNITS/3 ML VIAL SUBQ SCH ×4 (08:58→19:52)
[2022-01-13] MEDS: Budesonide/Formoterol 80/4.5 1 PUFF INH IH SCH ×2 (10:15→21:47)
[2022-01-13 14:38] LABS: % Iron Saturation 24 % (20-55); Iron 58 mcg/dL (65-175); Transferrin 172 mg/dL (203-362)
[2022-01-13 15:06] LABS: Folate > 22.3 ng/mL (3.0-16.0); Vitamin B12 1126 pg/mL (250-1100)
[2022-01-14] MEDS: Ipratropium/Albuterol Neb 3 ML IH SCH ×4 (04:14→21:54)
[2022-01-14] MEDS: polyethylene glycoL 3350 17 GM POWD.PACK PO SCH (04:30)
[2022-01-14] MEDS: *HR* Enoxaparin 40 MG/0.4 ML SYRINGE SQ SCH (04:31)
[2022-01-14] MEDS: *HR* HYDROcodone/Acet 10/325 mg TABLET PO PRN ×2 (04:31→19:57)
[2022-01-14] MEDS: predniSONE 20 MG TABLET PO SCH (07:53)
[2022-01-14] MEDS: Cholecalciferol (D-3) 1,000 UNIT (25MCG) TABLET PO SCH (07:53)
[2022-01-14] MEDS: Ascorbic Acid 500 MG TABLET PO SCH (07:53)
[2022-01-14] MEDS: Folic Acid 1 MG TABLET PO SCH (07:53)
[2022-01-14] MEDS: Metoprolol XL (24 HR) Succ 25 MG TAB.ER.24H PO SCH (07:53)
[2022-01-14] MEDS: *HR* Amiodarone 200 MG TABLET PO SCH (07:53)
[2022-01-14] MEDS: Torsemide 20 MG TABLET PO SCH ×2 (07:53→16:48)
[2022-01-14] MEDS: Vitamin B Complex/Vit C/Vit E 1 EACH TABLET PO SCH (07:54)
[2022-01-14] MEDS: Insulin LISPRO 300 UNITS/3 ML VIAL SUBQ SCH ×4 (07:54→19:57)
[2022-01-14] MEDS: Aspirin Enteric Coated 81 MG Tablet PO SCH (07:54)
[2022-01-14] MEDS: Budesonide/Formoterol 80/4.5 1 PUFF INH IH SCH ×2 (09:42→21:51)
[2022-01-14 12:58] LABS: Basophils % 0.1 %; Eosinophils % 0.1 %; Hematocrit 28.1 % (37.5-50.1); Hemoglobin 9.2 g/dL (12.9-16.9); Immature Granulocytes % 1.1 % (0-4); Lymphocytes # 0.3 K/mcL (0.6-4.6); Mean Corpuscular HGB Conc 32.7 g/dL (31.6-35.5); Mean Corpuscular Hemoglobin 32.2 pg (28.0-33.3); Mean Corpuscular Volume 98.3 fL (83.0-100.0); Mean Platelet Volume 8.9 fL (9.4-12.4); Monocytes # 0.3 K/mcL (0.0-1.3); Monocytes % 2.8 %; Neutrophils # 10.4 K/mcL (1.6-8.9); Platelet Count 135 K/mcL (140-400); Red Blood Count 2.86 M/mcL (4.19-5.50); Red Cell Distribution Width 13.7 % (11.5-14.5); Segmented Neutrophils % 92.9 %; White Blood Count 11.2 K/mcL (4.3-11.1)
[2022-01-14 13:10] LABS: Calcium 8.7 mg/dL (8.6-10.3); Potassium 4.4 mEq/L (3.5-5.1)
[2022-01-14] MEDS: Benzonatate 100 MG CAPSULE PO PRN ×2 (17:01→22:02)
[2022-01-15] MEDS: Ipratropium/Albuterol Neb 3 ML IH SCH ×4 (04:44→21:30)
[2022-01-15] MEDS: *HR* HYDROcodone/Acet 10/325 mg TABLET PO PRN ×2 (05:05→19:53)
[2022-01-15] MEDS: *HR* Enoxaparin 40 MG/0.4 ML SYRINGE SQ SCH (05:05)
[2022-01-15] MEDS: polyethylene glycoL 3350 17 GM POWD.PACK PO SCH (05:05)
[2022-01-15 07:11] LABS: Eosinophils # 0.1 K/mcL (0.0-0.6); Eosinophils % 1.2 %; Hematocrit 25.5 % (37.5-50.1); Hemoglobin 8.3 g/dL (12.9-16.9); Immature Granulocytes % 1.7 % (0-4); Lymphocytes # 1.2 K/mcL (0.6-4.6); Lymphocytes % 12.6 %; Mean Corpuscular HGB Conc 32.5 g/dL (31.6-35.5); Mean Corpuscular Volume 98.5 fL (83.0-100.0); Mean Platelet Volume 9.1 fL (9.4-12.4); Monocytes # 0.7 K/mcL (0.0-1.3); Monocytes % 7.7 %; Neutrophils # 7.1 K/mcL (1.6-8.9); Platelet Count 132 K/mcL (140-400); Red Blood Count 2.59 M/mcL (4.19-5.50); Red Cell Distribution Width 13.6 % (11.5-14.5); Segmented Neutrophils % 76.8 %; White Blood Count 9.2 K/mcL (4.3-11.1)
[2022-01-15 07:47] LABS: Calcium 8.4 mg/dL (8.6-10.3); Potassium 3.7 mEq/L (3.5-5.1)
[2022-01-15] MEDS: Torsemide 20 MG TABLET PO SCH ×2 (08:25→16:28)
[2022-01-15] MEDS: Cholecalciferol (D-3) 1,000 UNIT (25MCG) TABLET PO SCH (08:26)
[2022-01-15] MEDS: Ascorbic Acid 500 MG TABLET PO SCH (08:26)
[2022-01-15] MEDS: Aspirin Enteric Coated 81 MG Tablet PO SCH (08:26)
[2022-01-15] MEDS: Metoprolol XL (24 HR) Succ 25 MG TAB.ER.24H PO SCH (08:27)
[2022-01-15] MEDS: Benzonatate 100 MG CAPSULE PO PRN (08:27)
[2022-01-15] MEDS: Folic Acid 1 MG TABLET PO SCH (08:27)
[2022-01-15] MEDS: Insulin LISPRO 300 UNITS/3 ML VIAL SUBQ SCH ×4 (08:28→19:54)
[2022-01-15] MEDS: Budesonide/Formoterol 80/4.5 1 PUFF INH IH SCH ×2 (10:23→21:30)
[2022-01-16] MEDS: Ipratropium/Albuterol Neb 3 ML IH SCH ×4 (03:42→20:57)
[2022-01-16] MEDS: polyethylene glycoL 3350 17 GM POWD.PACK PO SCH (06:34)
[2022-01-16] MEDS: *HR* Enoxaparin 40 MG/0.4 ML SYRINGE SQ SCH (06:34)
[2022-01-16 06:44] LABS: Basophils % 0.1 %; Eosinophils # 0.2 K/mcL (0.0-0.6); Eosinophils % 2.6 %; Hematocrit 27.1 % (37.5-50.1); Hemoglobin 8.7 g/dL (12.9-16.9); Immature Granulocytes % 1.6 % (0-4); Lymphocytes # 0.9 K/mcL (0.6-4.6); Lymphocytes % 12.3 %; Mean Corpuscular HGB Conc 32.1 g/dL (31.6-35.5); Mean Corpuscular Hemoglobin 32.1 pg (28.0-33.3); Mean Platelet Volume 8.9 fL (9.4-12.4); Monocytes # 0.5 K/mcL (0.0-1.3); Monocytes % 6.6 %; Neutrophils # 5.8 K/mcL (1.6-8.9); Platelet Count 117 K/mcL (140-400); Red Blood Count 2.71 M/mcL (4.19-5.50); Segmented Neutrophils % 76.8 %; White Blood Count 7.6 K/mcL (4.3-11.1)
[2022-01-16 08:18] LABS: Albumin 3.2 g/dL (3.5-5.7); Albumin/Globulin Ratio 1.3 (1.1-2.2); Bilirubin,Total 0.8 mg/dL (0.3-1.0); Calcium 8.5 mg/dL (8.6-10.3); Globulin 2.4 g/dL (2.4-3.5); Magnesium 1.7 mg/dL (1.6-2.6); Potassium 4.1 mEq/L (3.5-5.1); Total Protein 5.6 g/dL (6.4-8.9)
[2022-01-16] MEDS: Insulin LISPRO 300 UNITS/3 ML VIAL SUBQ SCH ×2 (08:23→12:19)
[2022-01-16] MEDS: Folic Acid 1 MG TABLET PO SCH (08:24)
[2022-01-16] MEDS: Budesonide/Formoterol 80/4.5 1 PUFF INH IH SCH ×2 (08:24→20:57)
[2022-01-16] MEDS ORDERED: Ondansetron ODT 4 MG TAB.RAPDIS SL PRN (08:44)
[2022-01-16] MEDS: Metoprolol XL (24 HR) Succ 25 MG TAB.ER.24H PO SCH (09:35)
[2022-01-16] MEDS: Aspirin Enteric Coated 81 MG Tablet PO SCH (09:35)
[2022-01-16] MEDS: *HR* Amiodarone 200 MG TABLET PO SCH (09:35)
[2022-01-16] MEDS: Torsemide 20 MG TABLET PO SCH (09:37)
[2022-01-16] MEDS: Ascorbic Acid 500 MG TABLET PO SCH (09:37)
[2022-01-16] MEDS: Cholecalciferol (D-3) 1,000 UNIT (25MCG) TABLET PO SCH (09:38)
[2022-01-16] MEDS: *HR* HYDROcodone/Acet 10/325 mg TABLET PO PRN (12:18)
[2022-01-16] MEDS: Benzonatate 100 MG CAPSULE PO PRN (21:08)
[2022-01-17] MEDS: Ipratropium/Albuterol Neb 3 ML IH SCH ×4 (04:00→20:41)
[2022-01-17] MEDS: *HR* Enoxaparin 40 MG/0.4 ML SYRINGE SQ SCH (04:57)
[2022-01-17] MEDS: polyethylene glycoL 3350 17 GM POWD.PACK PO SCH (04:57)
[2022-01-17 05:04] LABS: Hematocrit 23.5 % (37.5-50.1); Hemoglobin 7.6 g/dL (12.9-16.9); Mean Corpuscular HGB Conc 32.3 g/dL (31.6-35.5); Mean Corpuscular Hemoglobin 31.7 pg (28.0-33.3); Mean Corpuscular Volume 97.9 fL (83.0-100.0); Mean Platelet Volume 9.3 fL (9.4-12.4); Platelet Count 115 K/mcL (140-400); Red Cell Distribution Width 14.4 % (11.5-14.5); White Blood Count 6.4 K/mcL (4.3-11.1)
[2022-01-17 05:17] LABS: Calcium 7.9 mg/dL (8.6-10.3); Magnesium 1.8 mg/dL (1.6-2.6)
[2022-01-17] MEDS: *HR* HYDROcodone/Acet 10/325 mg TABLET PO PRN ×2 (05:19→17:23)
[2022-01-17] MEDS: Ascorbic Acid 500 MG TABLET PO SCH (10:22)
[2022-01-17] MEDS: Cholecalciferol (D-3) 1,000 UNIT (25MCG) TABLET PO SCH (10:23)
[2022-01-17] MEDS: Folic Acid 1 MG TABLET PO SCH (10:23)
[2022-01-17] MEDS: predniSONE 5 MG TABLET PO SCH (10:23)
[2022-01-17] MEDS: Aspirin Enteric Coated 81 MG Tablet PO SCH (10:24)
[2022-01-17] MEDS: Metoprolol XL (24 HR) Succ 25 MG TAB.ER.24H PO SCH (10:24)
[2022-01-17] MEDS: Budesonide/Formoterol 80/4.5 1 PUFF INH IH SCH ×2 (10:34→20:41)
[2022-01-17] MEDS ORDERED: Acetaminophen 325 MG TABLET PO ONE (14:16)
[2022-01-17] MEDS ORDERED: 0.9 % Sodium Chloride 250 ML IVC SCH (14:30)
[2022-01-17] MEDS ORDERED: Furosemide 20 MG/2 ML VIAL IVP ONE (15:00)
[2022-01-17] MEDS: Torsemide 20 MG TABLET PO SCH (17:23)
[2022-01-17] MEDS ORDERED: Furosemide 20 MG TABLET PO ONE (19:02)
[2022-01-17 20:44] VITALS: RESP 18
[2022-01-18] MEDS: Ipratropium/Albuterol Neb 3 ML IH SCH ×2 (04:16→07:54)
[2022-01-18] MEDS: polyethylene glycoL 3350 17 GM POWD.PACK PO SCH (04:52)
[2022-01-18] MEDS: *HR* Enoxaparin 40 MG/0.4 ML SYRINGE SQ SCH (06:08)
[2022-01-18 07:06] LABS: Hematocrit 25.9 % (37.5-50.1); Hemoglobin 8.4 g/dL (12.9-16.9); Mean Corpuscular HGB Conc 32.4 g/dL (31.6-35.5); Mean Corpuscular Hemoglobin 31.2 pg (28.0-33.3); Mean Corpuscular Volume 96.3 fL (83.0-100.0); Mean Platelet Volume 9.5 fL (9.4-12.4); Platelet Count 107 K/mcL (140-400); Red Blood Count 2.69 M/mcL (4.19-5.50); Red Cell Distribution Width 16.2 % (11.5-14.5); White Blood Count 6.1 K/mcL (4.3-11.1)
[2022-01-18] MEDS: Budesonide/Formoterol 80/4.5 1 PUFF INH IH SCH (07:54)
[2022-01-18 07:57] LABS: Calcium 7.9 mg/dL (8.6-10.3); Magnesium 1.7 mg/dL (1.6-2.6); Potassium 3.8 mEq/L (3.5-5.1)
[2022-01-18 08:51] VITALS: PULSE 98; TEMP 98; O2SAT 96
[2022-01-18] MEDS: Aspirin Enteric Coated 81 MG Tablet PO SCH (09:28)
[2022-01-18] MEDS: Ascorbic Acid 500 MG TABLET PO SCH (09:28)
[2022-01-18] MEDS: Benzonatate 100 MG CAPSULE PO PRN (09:28)
[2022-01-18] MEDS: Folic Acid 1 MG TABLET PO SCH (09:28)
[2022-01-18] MEDS: Metoprolol XL (24 HR) Succ 25 MG TAB.ER.24H PO SCH (09:28)
[2022-01-18] MEDS: Cholecalciferol (D-3) 1,000 UNIT (25MCG) TABLET PO SCH (09:28)
[2022-01-18] MEDS: *HR* HYDROcodone/Acet 10/325 mg TABLET PO PRN (09:28)
[2022-01-18] MEDS: predniSONE 5 MG TABLET PO SCH (09:29)
[2022-01-18] MEDS: *HR* Amiodarone 200 MG TABLET PO SCH (09:29)
[2022-01-18] MEDS: Torsemide 20 MG TABLET PO SCH (09:29)
[2022-01-18 13:23] VITALS: BP 142/72
== END 2022-01-18 14:44 | disposition home health service (06) | DRG 177 ==
LOC: INPGRE 17:52
PROVIDERS: ADMIT Family Medicine; ATTEND Family Medicine